=== PATIENT | female | born 1975 | race Hispanic/Latino ===

== ENCOUNTER 2018-01-22 09:35 | Inpatient (IN) | payer OTHER ==
[2018-01-22] MEDS ORDERED: METHYLPREDNISOLONE 125 MG INJ ONE (10:05)
[2018-01-22] MEDS ORDERED: Magnesium Sulfate 2gm IVPB 0 G/0 ML BAG IV ONE (10:06)
[2018-01-22] MEDS ORDERED: IPRATROPIUM BROM 0.5MG/2.5ML ONE (10:06)
[2018-01-22] MEDS ORDERED: ALBUTEROL 2.5 MG/3 ML NEB SOL ONE (10:06)
[2018-01-22 11:08] LABS: Urine Blood 2+ (NEG); Urine Glucose 3+ (NEG); Urine Protein 1+ (NEG)
[2018-01-22] MEDS ORDERED: DEXAMETHASONE 10 MG/ML VIAL ONE (11:23)
--- NOTE | 2018-01-22 12:29 | RAD REPORT ---
EXAM DESCRIPTION: RAD - Chest Pa And Lat (2 Views) - 01/22/2018 12:13 pm CLINICAL HISTORY: Cough, chest congestion COMPARISON: None. FINDINGS: Significant motion artifact is present. Moderate bilateral pulmonary opacities are noted, greater on the right, likely representing pneumonia or pulmonary edema. The heart is upper limit of n ormal in size. No displaced fractures.
--- NOTE | 2018-01-22 14:37 | EKG ---
Test Date: 2018-01-22 Test Time: 13:56:59 Gas Examiner: RAE MEASUREMENT RESULTS: Intervals: Rate: 91 NM: 150 QRSD: 106 QT: 390 QTc: 479 [place]: P: 9 NM: 150 QRS: 110 T: 14 INTERPRETIVE STATEMENTS: Normal sinus rhythm Right axis deviation Incomplete right bundle branch block Cannot rule out Anterior infarct, age undetermined Abnormal ECG No previous ECG available for comparison Electronically Signed On 01-22-18 14:36:55 CDT by Rios Rangel
[2018-01-22 15:04] LABS: Arterial Blood Carboxyhemoglob 2.1 % (0-1.5); Blood Gas Oxyhemoglobin 82.6 % (94-97); Blood O2 Saturation 85.2 % (92-98.5)
[2018-01-22 15:29] LABS: Absolute Lymphocytes (CBC) 0.6 K/uL (0.7-4.9); Absolute Monocytes 0.2 K/uL (0.1-1.3); Absolute Neutrophil 18.9 K/uL (1.8-8.0); Basophils % 0.3 % (0-1.3); Eosinophils % 0.2 % (0-4.4); Hematocrit 36.8 % (36.0-45.0); Lymphocytes % 2.9 % (15.3-44.8); MCH 22.2 pg (27.0-35.0); MCV 73.5 fL (80-100); MPV 9.4 fL (7.6-11.3); RBC Red Blood Cell Count 5.01 M/uL (3.86-4.86)
[2018-01-22 15:31] LABS: Bicarbonate 25 mEq/L (21-31); Glucose Level 335 mg/dL (65-120); Potassium 4.6 mEq/L (3.6-5.0); Sodium Level 134 mEq/L (135-145)
[2018-01-22 15:38] LABS: ALT/SGPT 22 IU/L (10-60); AST/SGOT 17 IU/L (10-42); Albumin 4.4 g/dL (3.2-5.5); Alkaline Phosphatase 114 IU/L (42-121); BUN Blood Urea Nitrogen 8 mg/dL (6-20); Bilirubin Direct 0.2 mg/dL (0-0.2); Bilirubin Total 0.9 mg/dL (0.3-1.2); Protein, Total 9.2 g/dL (6.0-8.3)
[2018-01-22 16:25] LABS: Protime INR 1.14
--- NOTE | 2018-01-22 16:34 | EDPHYS ---
Physician Documentation [facility] Name: Marianna Garsia Age: 42 yrs Sex: Female : 1975 Arrival Date: 01/22/2018 Time: 09:43 Bed 7 Private MD: Lawrence Daley, Oscar ED Physician Aman Mendes HPI: 01/22 14:00 This 42 yrs old Female presents to ER via Wheelchair with complaints of pm1 Breathing Difficulty, Congestion, Wheezing. 14:00 The patient has shortness of breath at rest, with light activity. Onset: The pm1 symptoms/episode began/occurred 2 day(s) ago. Duration: The symptoms are continuous, and are steadily getting worse. The patient's shortness of breath is aggravated by nothing, is alleviated by nothing. Associated signs and symptoms: Pertinent positives: productive cough, Pertinent negatives: chest pain, fever, nausea, vomiting. Severity of symptoms: in the emergency department the symptoms are worse Pain is currently a 0 / 10. The patient has experienced similar episodes in the past, multiple times, but today's symptoms are worse. The patient has not recently seen a physician, the patient's primary care provider is Dr. Daley. Patient reports no improvement in breathing treatment at home. 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 - Social history:: Smoking status: Patient/guardian denies using tobacco. - Ebola Screening: : No symptoms or risks identified at this time. ROS: 14:00 Constitutional: Negative for fever, chills, and weight loss, Eyes: Negative for injury, pm1 pain, redness, and discharge, ENT: Negative for injury, pain, and discharge, Neck: Negative for injury, pain, and swelling, Cardiovascular: Negative for chest pain, palpitations, and edema. 14:00 Abdomen/GI: Negative for abdominal pain, nausea, vomiting, diarrhea, and constipation, Back: Negative for injury and pain, : Negative for injury, bleeding, discharge, and swelling, MS/Extremity: Negative for injury and deformity, Skin: Negative for injury, rash, and discoloration, Neuro: Negative for headache, weakness, numbness, tingling, and seizure. 14:00 Respiratory: Positive for cough, shortness of breath, wheezing. Exam: 14:00 Constitutional: This is a well developed, well nourished patient who is awake, alert, pm1 and in no acute distress. Head/Face: Normocephalic, atraumatic. Eyes: Pupils equal round and reactive to light, extra-ocular motions intact. Lids and lashes normal. Conjunctiva and sclera are non-icteric and not injected. Cornea within normal limits. Periorbital areas with no swelling, redness, or edema. ENT: Nares patent. No nasal discharge, no septal abnormalities noted. Tympanic membranes are normal and external auditory canals are clear. Oropharynx with no redness, swelling, or masses, exudates, or evidence of obstruction, uvula midline. Mucous membranes moist. Neck: Trachea midline, no thyromegaly or masses palpated, and no cervical lymphadenopathy. Supple, full range of motion without nuchal rigidity, or vertebral point tenderness. No Meningismus. Chest/axilla: Normal chest wall appearance and motion. Nontender with no deformity. No lesions are appreciated. Cardiovascular: Regular rate and rhythm with a normal S1 and S2. No gallops, murmurs, or rubs. Normal PMI, no JVD. No pulse deficits. 14:00 Abdomen/GI: Soft, non-tender, with normal bowel sounds. No distension or tympany. No guarding or rebound. No evidence of tenderness throughout. Back: No spinal tenderness. No costovertebral tenderness. Full range of motion. Skin: Warm, dry with normal turgor. Normal color with no rashes, no lesions, and no evidence of cellulitis. MS/ Extremity: Pulses equal, no cyanosis. Neurovascular intact. Full, normal range of motion. 14:00 Respiratory: the patient does not display signs of respiratory distress, Respirations: normal, Breath sounds: rhonchi, are heard diffusely. 14:00 Neuro: Orientation: is normal, Motor: is normal, moves all fours, strength is normal, strength is 5/5 in all extremities. Vital Signs: 09:51 BP 198 / 86; Pulse 94; Resp 22; Temp 98; Pulse Ox 84% on R/A; Weight 190.51 kg; Height sv 5 ft. 0 in. (152.40 cm); Pain 0/10; 11:34 BP 168 / 88; Pulse 78; Resp 15; Pulse Ox 99% on R/A; Pain 0/10; ch 11:55 Pulse 89; Resp 22; Pulse Ox 98% on Nebulizer Mask; ch 13:11 BP 162 / 102; Pulse 86; Resp 24; Temp 99; Pulse Ox 88% on R/A; Pain 2/10; ch 13:55 BP 148 / 98; Pulse 62; Resp 18; Pulse Ox 92% on 2 lpm NC; Pain 0/10; ch 14:51 BP 176 / 82; Pulse 65; Resp 20; Temp 99; Pulse Ox 96% on 2 lpm NC; Pain 3/10; ch 17:00 BP 156 / 85; Pulse 84; Resp 24; Temp 99; Pulse Ox 93% on 2 lpm NC; Pain 0/10; ch 18:16 BP 168 / 102; Pulse 85; Resp 24; Temp 99(O); Pulse Ox 98% on Nebulizer Mask; Pain 0/10; ch 19:54 BP 158 / 76; Pulse 81; Resp 18; Temp 98; Pulse Ox 97% on NC; bp 09:51 Body Mass Index 82.03 (190.51 kg, 152.40 cm) sv 09:51 Pt placed on O2 \T\ 2L per NC sv 13:11 pt placed back on NC ch MDM: 10:10 Patient medically screened. pm1 13:45 ED course: Patient with decreased saturation to mid 80s without NC. Additional tests pm1 order to evaluate if patient requires admission. 16:33 Data reviewed: vital signs. Data interpreted: Pulse oximetry: on room air is 96 %. pm1 Interpretation: normal. Counseling: I had a detailed discussion with the patient and/or guardian regarding: the historical points, exam findings, and any diagnostic results supporting the discharge/admit diagnosis, lab results, radiology results, the need for further work-up and treatment in the hospital. 16:56 Physician consultation: Lawrence Daley MD was called at 16:56, was contacted at 16:56, pm1 regarding admission, patient's condition, and will see patient steroids, antibiotics, breathing treatment, insulin sliding scale, oxygen nc protocol. 01/22 10:45 Order name: Urine Dipstick--Ancillary (enter results); Complete Time: 11:14 em1 01/22 10:45 Order name: Urine --Ancillary (enter results); Complete Time: 11:14 em01/22 13:40 Order name: PT-INR; Complete Time: 16:50 pm1 01/22 13:40 Order name: Basic Metabolic Panel; Complete Time: 16:15 pm01/22 13:40 Order name: CBC with Diff pm01/22 13:40 Order name: LFT's; Complete Time: 16:15 pm1 01/22 10:55 Order name: Chest Pa And Lat (2 Views) XRAY; Complete Time: 12:44 pm1 01/22 13:40 Order name: Magnesium; Complete Time: 16:15 pm01/22 13:40 Order name: Ptt, Activated; Complete Time: 16:50 pm1 01/22 13:40 Order name: Troponin (emerg Dept Use Only); Complete Time: 16:15 pm1 01/22 13:40 Order name: Blood Culture Adult (2) pm1 01/22 14:07 Order name: ABG; Complete Time: 16:15 pm1 01/22 10:45 Order name: Urine Dipstick-Ancillary (obtain specimen); Complete Time: 10:45 em1 01/22 10:45 Order name: Urine Test (obtain specimen); Complete Time: 10:45 em1 01/22 13:40 Order name: EKG; Complete Time: 13:41 pm1 01/22 13:40 Order name: IV Saline Lock; Complete Time: 18:15 pm01/22 13:40 Order name: Labs collected and sent; Complete Time: 15:49 pm1 01/22 13:40 Order name: O2 Per Protocol; Complete Time: 15:22 pm1 01/22 13:40 Order name: O2 Sat Monitoring; Complete Time: 15:22 pm1 06/12 18:18 Order name: FSBS; Complete Time: 19:09 Administered Medications: 10:05 Drug: Albuterol - atroVENT (3:1) (2.5 mg - 0.5 mg) 3 ml Route: Nebulizer; 11:19 Follow up: Response: No adverse reaction; No change in condition 10:56 CANCELLED (Change to decadron): SOLU-Medrol 125 mg IM once pm1 11:33 Drug: Decadron 10 mg Route: IM; Site: affected area; 11:33 Follow up: Response: No adverse reaction; Marked relief of symptoms 17:30 Drug: Xopenex 1.25 mg Route: Inhalation; 17:30 Drug: AZITHromycin 500 mg Route: IVPB; Infused Over: 1 hrs; Site: left antecubital; 19:01 Follow up: IV Status: Completed infusion; IV Intake: 250ml 18:14 Drug: NS 0.9% 1000 ml Route: IV; Rate: 1000 ml; Site: left antecubital; 19:01 Follow up: IV Status: Completed infusion; IV Intake: 1000ml ch 18:15 Not Given (Given IV): Rocephin (cefTRIAXone) 1 grams IM once ch 18:16 Drug: Rocephin 1 grams Route: IV; Rate: calculated rate; Site: left antecubital; 19:00 Follow up: IV Status: Completed infusion; IV Intake: 100ml 18:18 Drug: Insulin Regular Human 10 units {Co-Signature: ph (Aria Conner RN).} Route: Sub-Q; Site: left upper arm; 19:01 Follow up: Response: No adverse reaction Point of Care Testing: Blood Glucose: 18:16 Blood Glucose: 324 mg/dL; ch 18:54 Blood Glucose: 234 mg/dL; ch Ranges: Critical Glucose Levels:Adult <50 mg/dl or >400 mg/dl <40 mg/dl or >180 mg/dl Disposition: 01/23 15:27 Co-signature as Attending Physician, Aman Mendes MD I agree with the assessment and [place] plan of care. Disposition: 01/22/18 16:34 Hospitalization ordered by Lawrence Daley for Inpatient Admission. Preliminary diagnosis is Pneumonia, unspecified organism. - Bed requested for Telemetry/MedSurg (Inpatient). - Status is Inpatient Admission. bp - Condition is Stable. - Problem is new. - Symptoms have improved. UTI on Admission? No Signatures: Dispatcher [employer] EDMelissa Decker, RN RN Livia Barraza, Sanjuana Denny RN, CHAN RN Aman Krueger MD MD cha Martinez, Eric em1 Nishant Gaspar, DRIVEMATIC MACHINE OPERATOR DRIVEMATIC MACHINE OPERATOR pm1 Carlton Mckeon, CHAN RN bp Aria Conner RN ph Corrections: (The following items were deleted from the chart) 01/22 10:56 10:55 SOLU-Medrol 125 mg IM once ordered. pm1 pm1 18:18 16:34 Hospitalization Ordered by Lawrence Daley MD for Inpatient Admission. Preliminary diagnosis is Pneumonia, unspecified organism. Bed requested for Telemetry/MedSurg (Inpatient). Status is Inpatient Admission. Condition is Stable. Problem is new. Symptoms have improved. UTI on Admission? No. pm1 20:02 18:18 01/22/2018 16:34 Hospitalization Ordered by Lawrence Daley MD for Inpatient bp Admission. Preliminary diagnosis is Pneumonia, unspecified organism. Bed requested for Telemetry/MedSurg (Inpatient). Status is Inpatient Admission. Condition is Stable. Problem is new. Symptoms have improved. UTI on Admission? No. dw
--- NOTE | 2018-01-22 16:34 | ER ---
Nurse's Notes [facility] Name: Marianna Garsia Age: 42 yrs Sex: Female : 1975 Arrival Date: 01/22/2018 Time: 09:43 Bed 7 Private MD: Lawrence Daley F Diagnosis: Pneumonia, unspecified organism Presentation: 01/22 09:48 Presenting complaint: Patient states: nasal drainage, chest congestion, SOB x 2 days. sv Pt reports recently having a miscarriage. Transition of care: patient was not received from another setting of care. Onset of symptoms was January 20, 2018. Risk Assessment: Do you want to hurt yourself or someone else? Patient reports no desire to harm self or others. Care prior to arrival: None. 09:48 Method Of Arrival: Wheelchair sv 09:48 Acuity: JJ 3 sv 18:51 Initial Sepsis Screen: Does the patient meet any 2 criteria? No. Patient's initial ch sepsis screen is negative. Does the patient have a suspected source of infection? No. Patient's initial sepsis screen is negative. Triage Assessment: 18:52 Respiratory: Reports shortness of breath at rest Onset: The symptoms/episode ch began/occurred gradually, the patient has moderate shortness of breath. 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 - Social history:: Smoking status: Patient/guardian denies using tobacco. - Ebola Screening: : No symptoms or risks identified at this time. Screenin:11 Abuse screen: Denies threats or abuse. Denies injuries from another. Nutritional ch screening: No deficits noted. Tuberculosis screening: No symptoms or risk factors identified. Fall Risk None identified. Assessment: 10:11 General: Appears in no apparent distress. comfortable, Behavior is calm, cooperative, ch appropriate for age. Pain: Denies pain. Cardiovascular: Denies chest pain, Capillary refill < 3 seconds in bilateral fingers toes Clubbing of nail beds is absent Pulses are all present. Edema is 1+ to left midcalf, left ankle, left foot, right midcalf, right ankle and right foot Rhythm is regular. Respiratory: Airway is patent Trachea midline Respiratory effort is even, unlabored, Breath sounds are diminished bilaterally. LUNGS SOUND MUFFLED, PT IS MORBIDLY OBESE. GI: Abdomen is non-distended, obese. Derm: Skin is intact, Skin is pink, warm \T\ dry. Musculoskeletal: Circulation, motion, and sensation intact. Capillary refill < 3 seconds, in bilateral fingers. toes. Range of motion: intact in all extremities. 10:44 Reassessment: Patient appears in no apparent distress at this time. Spo2 noted to 77% ph RA after pt returned from restroom, placed on 4L NC, improved to 95%. 11:55 Reassessment: Patient appears in no apparent distress at this time. Patient and/or ch family updated on plan of care and expected duration. Pain level reassessed. Patient is alert, oriented x 3, equal unlabored respirations, skin warm/dry/pink. PT FINISHING NEB TREATMENT FROM BEFORE THAT WAS REMOVED WHEN PT WENT TO THE RESTROOM. 13:11 Reassessment: Patient appears in no apparent distress at this time. pt placed on room ch air, o2 drops to 88%. pt returned to NC at 2L. 13:55 Reassessment: Patient appears in no apparent distress at this time. Patient and/or ch family updated on plan of care and expected duration. Pain level reassessed. PT O2 79% ON ROOM AIR AFTER GOING TO THE RESTROOM. PT PLACED ON NC AT 2L NISHANT NOTIFIED. 14:51 Reassessment: Patient appears in no apparent distress at this time. Patient and/or ch family updated on plan of care and expected duration. Pain level reassessed. Patient is alert, oriented x 3, equal unlabored respirations, skin warm/dry/pink. lab at bedside drawing now. 15:46 Reassessment: Patient appears in no apparent distress at this time. pt requests to speak to nishant before we poke her again to attempt and IV. 17:00 Reassessment: Patient appears in no apparent distress at this time. Taya unable to ch find venous access to attempt and IV. Dr. Suarez notified, Dr. Suarez to perform US IV. 19:00 Reassessment: RECD REPORT FROM SHIRA GILES. 42YO HF P/W SOB x2 DAYS, RECENT SPONTANEOUS bp MISCARRIAGE. ALL CURRENT ORDERS COMPLETED, PT TBA FOR PNA. Vital Signs: 09:51 BP 198 / 86; Pulse 94; Resp 22; Temp 98; Pulse Ox 84% on R/A; Weight 190.51 kg; Height sv 5 ft. 0 in. (152.40 cm); Pain 0/10; 11:34 BP 168 / 88; Pulse 78; Resp 15; Pulse Ox 99% on R/A; Pain 0/10; ch 11:55 Pulse 89; Resp 22; Pulse Ox 98% on Nebulizer Mask; ch 13:11 BP 162 / 102; Pulse 86; Resp 24; Temp 99; Pulse Ox 88% on R/A; Pain 2/10; ch 13:55 BP 148 / 98; Pulse 62; Resp 18; Pulse Ox 92% on 2 lpm NC; Pain 0/10; ch 14:51 BP 176 / 82; Pulse 65; Resp 20; Temp 99; Pulse Ox 96% on 2 lpm NC; Pain 3/10; ch 17:00 BP 156 / 85; Pulse 84; Resp 24; Temp 99; Pulse Ox 93% on 2 lpm NC; Pain 0/10; ch 18:16 BP 168 / 102; Pulse 85; Resp 24; Temp 99(O); Pulse Ox 98% on Nebulizer Mask; Pain 0/10; ch 19:54 BP 158 / 76; Pulse 81; Resp 18; Temp 98; Pulse Ox 97% on NC; bp 09:51 Body Mass Index 82.03 (190.51 kg, 152.40 cm) sv 09:51 Pt placed on O2 \T\ 2L per NC sv 13:11 pt placed back on NC ch ED Course: 09:43 Patient arrived in ED. jb7 09:44 Lawrence Daley MD is Private Physician. jb7 09:49 Triage completed. sv 09:52 Arm band placed on right wrist. sv 10:02 Melissa Smith, CHAN is Primary Nurse. ch 10:04 Nishant Gaspar NP is PHCP. pm1 10:04 Aman Mendes MD is Attending Physician. pm1 10:11 Patient has correct armband on for positive identification. Placed in gown. Bed in low ch position. Call light in reach. Side rails up X2. Adult w/ patient. 10:11 No provider procedures requiring assistance completed. ch 11:51 Patient moved to radiology via wheelchair. jb2 12:10 X-ray completed. Patient tolerated procedure poorly. PT UNABLE TO HOLD STILL AND HOLD jb2 BREATH FOR LONG EXPOSURE TIMES REQUIRED FOR BODY HABITUS. 12:11 Chest Pa And Lat (2 Views) XRAY In Process Unspecified. EDMS 14:15 Missed attempt(s): 20 gauge in right forearm. attempted by Linden. Bleeding controlled, ch band aid applied, catheter tip intact. 14:31 EKG done, by forestry technician. reviewed by Nishant Gaspar NP. at1 14:35 Missed attempt(s): 20 gauge in left antecubital area. 22 gauge in left forearm. missed ch by PJ. Bleeding controlled, band aid applied, catheter tip intact. 15:48 No apparent distress. Resting quietly. ch 15:48 Missed attempt(s): 22 gauge in left wrist. antecubital area. Bleeding controlled, band ch aid applied, catheter tip intact. 16:33 Lawrence Daley MD is Hospitalizing Provider. pm1 17:10 Missed attempt(s): 20 gauge in right antecubital area. Bleeding controlled, band aid sv applied, catheter tip intact. 17:22 Accessed peripheral vein via ultrasound, utilizing dynamic ultrasound technique using sv 20G Nexia IV catheter ,sterile technique, per hospital protocol. Clean \T\ dry. Dressing intact. Good blood return. Flushes easily. done by Dr Suarez. 18:51 Patient admitted, IV remains in place. ch 19:14 Report given to Sandy Vincent. ch 19:17 Carlton Mckeon, RN is Primary Nurse. bp Administered Medications: 10:05 Drug: Albuterol - atroVENT (3:1) (2.5 mg - 0.5 mg) 3 ml Route: Nebulizer; ch 11:19 Follow up: Response: No adverse reaction; No change in condition ch 10:56 CANCELLED (Change to decadron): SOLU-Medrol 125 mg IM once pm1 11:33 Drug: Decadron 10 mg Route: IM; Site: affected area; 11:33 Follow up: Response: No adverse reaction; Marked relief of symptoms ch 17:30 Drug: Xopenex 1.25 mg Route: Inhalation; ch 17:30 Drug: AZITHromycin 500 mg Route: IVPB; Infused Over: 1 hrs; Site: left antecubital; ch 19:01 Follow up: IV Status: Completed infusion; IV Intake: 250ml ch 18:14 Drug: NS 0.9% 1000 ml Route: IV; Rate: 1000 ml; Site: left antecubital; ch 19:01 Follow up: IV Status: Completed infusion; IV Intake: 1000ml ch 18:15 Not Given (Given IV): Rocephin (cefTRIAXone) 1 grams IM once ch 18:16 Drug: Rocephin 1 grams Route: IV; Rate: calculated rate; Site: left antecubital; ch 19:00 Follow up: IV Status: Completed infusion; IV Intake: 100ml ch 18:18 Drug: Insulin Regular Human 10 units {Co-Signature: ph (Shira Conner RN).} Route: Sub-Q; Site: left upper arm; 19:01 Follow up: Response: No adverse reaction ch Point of Care Testing: Blood Glucose: 18:16 Blood Glucose: 324 mg/dL; ch 18:54 Blood Glucose: 234 mg/dL; ch Ranges: Intake: 19:00 IV: 100ml; Total: 100ml. ch 19:01 IV: 1000ml; Total: 1100ml. ch 19:01 IV: 250ml; Total: 1350ml. Outcome: 16:34 Decision to Hospitalize by Provider. pm1 19:57 Admitted to Med/surg accompanied by tech, family with patient, via wheelchair, room bp 219, with chart, Report called to KETURAH GILES 19:57 Condition: stable 19:57 Instructed on the need for admit. 20:02 Patient left the ED. bp Signatures: Dispatcher [employer] EDMS Melissa Smith RN RN ch Verde, Stephanie, RN RN Chvaez Gautam jb2 Katerin bradley, licensed practical vocational nurse EKG Tat1 Shira Conner RN RN ph Marinas, Patrick, BENCH MOLDER BENCH MOLDER pm1 Liborio Rodas jb7 Carlton Mckeon RN RN bp Patricia Conner RN ph Corrections: (The following items were deleted from the chart) 09:52 09:51 BP 198 / 86; Pulse 94bpm; Resp 22bpm; Pulse Ox 84% RA; Temp 98F; 190.51 kg; sv Height 5 ft. 0 in.; BMI: 82.0; Pain 0/10; sv 15:48 15:47 Missed attempt(s): 20 gauge in right forearm. attempted by Linden. Bleeding ch controlled, band aid applied, catheter tip intact. ch
[2018-01-22] MEDS ORDERED: LEVALBUTEROL 1.25 MG/3 ML NEB ONE (17:26)
[2018-01-22] MEDS ORDERED: CEFTRIAXONE/SWI 1gm 1 GM/10 ML SYR ONE (17:26)
[2018-01-22] MEDS ORDERED: AZITHROMYCIN IV 500 MG in NA CHLORIDE 0.9% 250 ML IVPB ONE (18:00)
[2018-01-22] MEDS ORDERED: NA CHLORIDE 0.9% 1,000 ML ONE (18:28)
[2018-01-22] MEDS ORDERED: INSULIN -REGULAR HUMAN 50 UNIT/0.5 ML ML ONE (18:29)
[2018-01-22] MEDS ORDERED: IPRATROPIUM BROM 0.5MG/2.5ML NEB PRN (19:47)
[2018-01-22] MEDS ORDERED: GLUCAGON 1 MG/VIAL IM PRN (19:47)
[2018-01-22] MEDS ORDERED: ALBUTEROL 2.5 MG/3 ML NEB SOL NEB PRN (19:47)
[2018-01-22] MEDS ORDERED: D50W 25 GM/50 ML SYRINGE IV PRN (19:47)
[2018-01-22] MEDS: METHYLPREDNISOLONE 40 MG INJ IV SCH (20:25)
[2018-01-22] MEDS: INSULIN -REGULAR HUMAN 50 UNIT/0.5 ML ML SQ SCH (20:36)
[2018-01-22] MEDS: ACETAMINOPHEN 500 MG TAB PO PRN (21:49)
[2018-01-22 22:25] LABS: Anisocytosis 1+; Blood Morphology Comment NOTED (NOT SEEN); Platelet Estimate INCR; Poikilocytosis 1+; Polychromasia 1+
[2018-01-22 22:26] LABS: Stomatocytes 1+
[2018-01-22 22:30] VITALS: BMI 81.1
[2018-01-23] MEDS: METHYLPREDNISOLONE 40 MG INJ IV SCH ×5 (00:29→23:14)
[2018-01-23] MEDS ORDERED: CEFTRIAXONE 1 GM/NS 50 ML 1 GM/50 ML BAG IV SCH (05:00)
[2018-01-23] MEDS ORDERED: CEFTRIAXONE 1000 MG/VIAL ONE (05:33)
[2018-01-23 05:42] LABS: Absolute Lymphocytes (CBC) 0.9 K/uL (0.7-4.9); Absolute Monocytes 0.2 K/uL (0.1-1.3); Absolute Neutrophil 16.4 K/uL (1.8-8.0); Basophils % 0.6 % (0-1.3); Eosinophils % 0.1 % (0-4.4); Hematocrit 32.6 % (36.0-45.0); Lymphocytes % 5.3 % (15.3-44.8); MCH 22.4 pg (27.0-35.0); MCV 74.1 fL (80-100); MPV 9.7 fL (7.6-11.3); Monocytes % 0.9 % (3.3-12.3)
[2018-01-23] MEDS ORDERED: NA CHLORIDE 0.9% 50 ML ONE (05:43)
[2018-01-23 05:48] LABS: BUN Blood Urea Nitrogen 14 mg/dL (6-20); Bicarbonate 22 mEq/L (21-31); Glucose Level 363 mg/dL (65-120); Potassium 5.2 mEq/L (3.6-5.0); Sodium Level 133 mEq/L (135-145)
[2018-01-23] MEDS: INSULIN -REGULAR HUMAN 50 UNIT/0.5 ML ML SQ SCH ×4 (08:36→21:05)
[2018-01-23] MEDS: AZITHROMYCIN IV 250 MG in NA CHLORIDE 0.9% 250 ML IVPB SCH (10:06)
[2018-01-23] MEDS: ACETAMINOPHEN 500 MG TAB PO PRN (12:18)
[2018-01-23] MEDS: CEFTRIAXONE/SWI 1gm 1 GM/10 ML SYR IV SCH (16:38)
[2018-01-23] MEDS ORDERED: ENOXAPARIN 40 MG/0.4 ML SQ SCH (17:00)
[2018-01-23] MEDS: LABETALOL HCL 100 MG TAB PO SCH (21:03)
[2018-01-23] MEDS: NPH (HUMAN) 100 UNITS/ML INSULIN SQ SCH (21:04)
--- NOTE | 2018-01-24 00:04 | HP ---
Date of Admission: 01/22/2018 History Of Present Illness: A 42-year-old female, morbidly obese, has been having increased shortnes s of breath and coughing over the past 2-3 days before presenting to the emergency room. She was whe ezing. In the emergency room, she was found to have bibasilar pneumonia and so we went ahead and adm itted her for that, also because she was hypoxic. Her pulse oximetry on room air was dropped down to 83 as per the ER physician. Review of Systems: Respiratory: As above. Cardiovascular: No complaints. Genitourinary: No complaints. Skeletomuscular: No complaints. Gastrointestinal: No complaint. Neurological: No complaint. Past Medical History: 1.Hypothyroidism. 2.Type 2 diabetes mellitus. 3.Hypertension. 4.Gastroesophageal reflux disease. Social History: No smoking, alcohol, or drug abuse history. Family History: Noncontributory. Medications: Include albuterol 2 puffs q.4 hours, Novolin R 20 units subcutaneous b.i.d., metformin 1000 mg p.o. b.i.d., QVAR inhaler 2 puffs daily, NPH insulin 70 units b.i.d. subcutaneous, labetalol 200 mg p.o. b.i.d., lansoprazole 30 mg p.o. daily, and levothyroxine 100 mcg daily. Allergies: HYDROCODONE AND AVOCADO. Physical Examination: General: The patient is now sitting in no acute distress. Vital Signs: Blood pressure 180/85, pulse 73, and temperature 96.7. Heart: Regular rate and rhythm. Chest: Bilateral bibasilar crackles. Mild end-expiratory wheezing. Abdomen: Soft, nontender. No hepatosplenomegaly. Bowel sounds normoactive. Extremities: No edema. No cyanosis. Peripheral pulses are felt. Neurological: Alert, oriented, nonfocal. Grossly intact. Diagnostic Data: Chest x-ray showed bilateral pulmonary opacities, greater on the right, representin g pneumonia. EKG: Normal sinus rhythm, right axis deviation, and incomplete right bundle-branch blo ck. CBC: White cell count 19.7, blood count 17.7, hemoglobin 11.1, hematocrit 36.8, and platelets 4 66. ABGs: A pH 7.46, pCO2 35.7, PO2 52.4, bicarb 24.8 on room air, and percent saturation 82.6. So dium 133, potassium 5.2, chloride 100, and blood sugar fingersticks noted in the 300s. Assessment And Plan: Bilateral pneumonia. The patient is being admitted with hypoxia. The patient is being admitted. Put her on oxygen protocol. Her O2 saturation went up to more than 88% on 2 L ox ygen nasal prong. The patient has been put on ceftriaxone IV antibiotic and azithromycin IV antibiot ic. We will continue home medications. We will hold on the metformin. We will continue her on her insulin and put her also on regular insulin sliding scale. Put her on beta 2 agonist breathing treat ments, and the patient also was put on Solu-Medrol 40 mg IV q.6 hours. We will also put the patient on Lovenox prophylaxis. Look orders for details. MFS/MODL Voice ID: [id number]
[2018-01-24] MEDS: CEFTRIAXONE/SWI 1gm 1 GM/10 ML SYR IV SCH (04:37)
[2018-01-24] MEDS: METHYLPREDNISOLONE 40 MG INJ IV SCH ×2 (05:42→11:31)
[2018-01-24] MEDS ORDERED: LEVOTHYROXINE SOD 0.1 MG TAB PO SCH (06:00)
[2018-01-24 06:29] LABS: Absolute Lymphocytes (CBC) 0.7 K/uL (0.7-4.9); Absolute Monocytes 0.4 K/uL (0.1-1.3); Absolute Neutrophil 16.1 K/uL (1.8-8.0); Basophils % 0.2 % (0-1.3); Hematocrit 30.9 % (36.0-45.0); Lymphocytes % 4.3 % (15.3-44.8); MCH 22.7 pg (27.0-35.0); MCV 73.4 fL (80-100); MPV 9.6 fL (7.6-11.3); Monocytes % 2.3 % (3.3-12.3)
[2018-01-24] MEDS ORDERED: PANTOPRAZOLE 40MG TABLET PO SCH (06:30)
[2018-01-24 06:51] LABS: Potassium 5.1 mEq/L (3.6-5.0)
[2018-01-24 08:14] VITALS: O2SAT 97
[2018-01-24] MEDS: INSULIN -REGULAR HUMAN 50 UNIT/0.5 ML ML SQ SCH ×2 (08:45→11:31)
[2018-01-24] MEDS: NPH (HUMAN) 100 UNITS/ML INSULIN SQ SCH (08:46)
[2018-01-24] MEDS: AZITHROMYCIN IV 250 MG in NA CHLORIDE 0.9% 250 ML IVPB SCH (08:47)
[2018-01-24] MEDS: LABETALOL HCL 100 MG TAB PO SCH (08:47)
[2018-01-24] MEDS: ACETAMINOPHEN 500 MG TAB PO PRN (08:52)
[2018-01-24] MEDS ORDERED: BECLOMETHASONE DIPROPIONATE IH SCH (09:00)
[2018-01-24 13:19] VITALS: BP 170/74; TEMP 96.7
--- NOTE | 2018-01-25 05:30 | DS ---
Date of Discharge: 01/24/2018 History Of Present Illness: A 42-year-old female who was admitted to the hospital because of bibasil ar pneumonia and hypoxia from that. Past Medical History: As per the admit note. Social History: As per the admit note. Family History: As per the admit note. Medications: As per the admit note. Allergies: PER THE ADMIT NOTE. Physical Examination: As per the admit note. Diagnostic Data: As per the admit note. Hospital Course: The patient was admitted to the hospital. She was put on IV Rocephin and Zithromax for her pneumonia. She also was put on IV Solu-Medrol and beta 2 agonist breathing treatments for h er wheezing because she has also history of asthma. The patient with this treatment recovered fast w ith her pulse oximetry more than 90% on room air. She remained afebrile. She was doing well. Her b lood sugar fingersticks were in the 300s and 400s. We put the patient back on her home medication an d on regular insulin sliding scale. However, with IV steroids, it was expected to be high, so we gaurang l go ahead and stop that. The patient today is feeling very well, ambulating well without shortness of breath or any symptoms. White cell count is 17.3, slight drop from yesterday of 17.7, however, al so on steroids. Demargination could increase her white cell count along with her pneumonia. Hemoglo bin 9.5, hematocrit 30.9, platelets 407. Sodium 132, potassium 5.1. BUN 24, creatinine 0.78. The patient today indeed wants to go home. She said she is feeling well. She will take her home med ications and her antibiotics knowing that if her blood sugar stays high. However, I have recommended to keep her one more day but she refused. So, we will go ahead and discharge the patient on Z-Julian 2 50 mg. The patient has albuterol inhaler at home. Advised to take 2 puffs q.i.d. Her lungs today w ere clear to auscultation, however, and the patient to continue her regular insulin for her diabetes and to follow 1800-calorie diabetic diet. We will see the patient on Sunday for followup. She is go ing to bring all her medications with her. Look discharge orders for details. MFS/MODL Voice ID: [id number] Report ID: [id number]
== END 2018-01-24 15:00 | disposition home or self-care (01) | DRG 194 ==
LOC: ER 09:35 → ERHOLD 16:34 → 2ND 19:20
PROVIDERS: ADMIT Internal Medicine; ATTEND Internal Medicine
DX: J18.9 Pneumonia, unspecified organism (principal); Z68.45 Body mass index [BMI] 70 or greater, adult; R09.02 Hypoxemia; E11.9 Type 2 diabetes mellitus without complications; I10 Essential (primary) hypertension; E03.9 Hypothyroidism, unspecified; K21.9 Gastro-esophageal reflux disease without esophagitis; E66.01 Morbid (severe) obesity due to excess calories
CPT/HCPCS: 36415; 71046; 80048; 80076; 81003; 81025; 82805; 82962; 83735; 84484; 85025; 85610; 85730; 87040; 93005; 94640; 94760; 96365; 96372; 99285; J0456; J0696; J1100; J1650; J2920; J2930; J3475; J7030

== ENCOUNTER 2018-05-09 08:40 | Emergency (ER) | payer OTHER ==
[2018-05-09] MEDS ORDERED: METHYLPREDNISOLONE 125 MG INJ ONE (09:23)
[2018-05-09] MEDS ORDERED: LEVALBUTEROL 1.25 MG/3 ML NEB ONE ×2 (09:23→10:31)
--- NOTE | 2018-05-09 09:44 | RAD REPORT ---
EXAM DESCRIPTION: Blake Single View05/09/2018 9:30 am CLINICAL HISTORY: Cough COMPARISON: January 2018 FINDINGS: The lungs appear grossly clear. The heart is normal size IMPRESSION: No acute abnormalities displayed
[2018-05-09 09:47] LABS: Absolute Lymphocytes (CBC) 0.8 K/uL (0.7-4.9); Absolute Monocytes 0.6 K/uL (0.1-1.3); Absolute Neutrophil 13.2 K/uL (1.8-8.0); Basophils % 0.3 % (0-1.3); Eosinophils % 1.1 % (0-4.4); Hematocrit 31.5 % (36.0-45.0); Lymphocytes % 5.6 % (15.3-44.8); MCH 22.5 pg (27.0-35.0); MCV 72.3 fL (80-100); MPV 9.8 fL (7.6-11.3); Monocytes % 4.4 % (3.3-12.3); RBC Red Blood Cell Count 4.36 M/uL (3.86-4.86)
[2018-05-09 09:54] LABS: BUN Blood Urea Nitrogen 6 mg/dL (7-18); Bicarbonate 29 mmol/L (21-32); Glucose Level 146 mg/dL (74-106); Potassium 4.2 mmol/L (3.5-5.1); Sodium Level 138 mmol/L (136-145)
[2018-05-09 10:59] LABS: Blood Morphology Comment NOT SEEN (NOT SEEN); Platelet Estimate ADEQ
--- NOTE | 2018-05-09 11:08 | EDPHYS ---
Physician Documentation [facility] Name: Marianna Garsia Age: 42 yrs Sex: Female : 1975 Arrival Date: 05/09/2018 Time: 08:43 Bed 7 Private MD: None, None ED Physician Chintan Suarez HPI: 05/09 09:31 This 42 yrs old Female presents to ER via Wheelchair with complaints of Fever, rn Breathing Difficulty. 09:31 The patient reports fever, not measured (subjective). Onset: The symptoms/episode rn began/occurred yesterday. Modifying factors: there are no obvious modifying factors. Severity of symptoms: At their worst the symptoms were mild in the emergency department the symptoms are unchanged. The patient has experienced a previous episode. Reports subjective fever, non-productive cough, + mild sob that improves with her breathing treatments, + hx of asthma, on home O2 at home. Began yesterday and multiple exposures to "upper respiratory infections" with kids. . Historical: - Allergies: 09:02 AVOCADO (LAURUS PERSEA); sv 09:02 HYDROCODONE; sv - PMHx: 09:02 Diabetes - IDDM; Hypertension; Hypothyroidism; sv - PSHx: 09:02 ; sv - Immunization history:: Adult Immunizations not up to date. - Social history:: Smoking status: Patient/guardian denies using tobacco. - Family history:: not pertinent. - Ebola Screening: : No symptoms or risks identified at this time. - Hospitalizations: : No recent hospitalization is reported. ROS: 09:31 Constitutional: Negative for chills, and weight loss, Eyes: Negative for injury, pain, rn redness, and discharge, Cardiovascular: Negative for chest pain, palpitations, and edema, Respiratory: Negative for pleuritic chest pain Abdomen/GI: Negative for abdominal pain, nausea, vomiting, diarrhea, and constipation, MS/Extremity: Negative for injury and deformity, Skin: Negative for injury, rash, and discoloration, Neuro: Negative for headache, weakness, numbness, tingling, and seizure. Exam: :31 Constitutional: Obese female, no acute distress Head/Face: Normocephalic, atraumatic. rn Eyes: Pupils equal round and reactive to light, extra-ocular motions intact. Lids and lashes normal. Conjunctiva and sclera are non-icteric and not injected. Cornea within normal limits. Periorbital areas with no swelling, redness, or edema. ENT: No oral lesions, no exudate, no stridor Neck: Trachea midline, no thyromegaly or masses palpated, and no cervical lymphadenopathy. Supple, full range of motion without nuchal rigidity, or vertebral point tenderness. No Meningismus. Cardiovascular: Regular rate and rhythm with a normal S1 and S2. No gallops, murmurs, or rubs. Normal PMI, no JVD. No pulse deficits. Respiratory: Lungs have equal breath sounds bilaterally, clear to auscultation and percussion. No rales, rhonchi or wheezes noted. No increased work of breathing, no retractions or nasal flaring. Abdomen/GI: Soft, non-tender, with normal bowel sounds. No distension or tympany. No guarding or rebound. No evidence of tenderness throughout. MS/ Extremity: Pulses equal, no cyanosis. Neurovascular intact. Full, normal range of motion. Equal circumference. Neuro: Awake and alert, GCS 15, oriented to person, place, time, and situation. Cranial nerves II-XII grossly intact. Motor strength 5/5 in all extremities. Sensory grossly intact. Cerebellar exam normal. Normal gait. Vital Signs: 09:02 Temp 98.5(O); sv 09:11 BP 180 / 86; Pulse 99; Resp 18; Pulse Ox 91% on R/A; Weight 189.6 kg; Height 5 ft. 0 ss in. (152.40 cm); Pain 3/10; 09:15 Pulse Ox 89% on R/A; sv 09:48 BP 164 / 71; Pulse 91; Resp 18; Pulse Ox 93% on 2 lpm NC; sv 10:32 BP 162 / 70; Pulse 81; Resp 18; Pulse Ox 98% on Nebulizer Mask; sv 09:11 Body Mass Index 81.63 (189.60 kg, 152.40 cm) ss 09:15 Pt placed on O2 \\T\\ 2L per NC. sv MDM: 08:48 Patient medically screened. rn 11:06 Differential diagnosis: viral Infection, bacterial infection, URI, pneumonia. Data rn reviewed: vital signs, nurses notes, lab test result(s), radiologic studies, plain films, and as a result, I will discharge patient. Counseling: I had a detailed discussion with the patient and/or guardian regarding: the historical points, exam findings, and any diagnostic results supporting the discharge/admit diagnosis, lab results, radiology results, the need for outpatient follow up, to return to the emergency department if symptoms worsen or persist or if there are any questions or concerns that arise at home. Special discussion: I discussed with the patient/guardian in detail that at this point there is no indication for admission to the hospital. It is understood, however, that if the symptoms persist or worsen the patient needs to return immediately for re-evaluation. ED course: Pt improved, no wheezing, oxygen near her baseline and has home O2, has nebulizer machine at home, cxr neg, procal negative, will dc home with steroids and abx. . 05/09 09:02 Order name: CBC with Diff 05/09 09:02 Order name: Basic Metabolic Panel; Complete Time: 10:20 05/09 09:02 Order name: Blood Culture Adult (2) 05/09 09:02 Order name: Procalcitonin; Complete Time: 10:20 05/09 09:02 Order name: Flu; Complete Time: 10:20 05/09 09:02 Order name: Strep; Complete Time: 10:20 05/09 09:02 Order name: XRAY Chest (1 view); Complete Time: 09:47 05/09 09:21 Order name: Glucose, Ancillary Testing; Complete Time: 09:47 [facility] 05/09 09:58 Order name: Throat Culture [facility] 05/09 11:00 Order name: Manual Differential [facility] 05/09 09:02 Order name: IV Start; Complete Time: 09:25 rn Administered Medications: 09:30 Drug: SOLU-Medrol 125 mg Route: IVP; Site: right wrist; sg 10:27 Follow up: Response: No adverse reaction sv 09:30 Drug: Xopenex 1.25 mg Route: Inhalation; sg 10:27 Drug: Xopenex 1.25 mg Route: Inhalation; sv 10:27 Drug: Xopenex 1.25 mg Route: Inhalation; sv Point of Care Testing: Blood Glucose: 09:20 Blood Glucose: 159 mg/dL; sv Ranges: Critical Glucose Levels:Adult <50 mg/dl or >400 mg/dl <40 mg/dl or >180 mg/dl Disposition: 05/09/18 11:08 Discharged to Home. Impression: Bronchitis, not specified as acute or chronic, Asthma. - Condition is Stable. - Discharge Instructions: Acute Bronchitis, Adult, Asthma, Adult. - Prescriptions for Prednisone 20 mg Oral Tablet - take 3 tablet by ORAL route once daily for 5 days; 15 tablet. Albuterol Sulfate 2.5 mg /3 mL (0.083 %) Inhalation Solution for Nebulization - inhale 1 unit by NEBULIZATION route every 8 hours As needed; 1 box. Zithromax Z- Julian 250 mg Oral Tablet - take 1 tablet by ORAL route as directed for 5 days Day 1 - take two (2) tablets one time. Day 2, 3, 4 , 5 take one (1) tablet once daily.; 6 tablet. - Work release form, Medication Reconciliation Form, Thank You Letter, Antibiotic Education, Prescription Opioid Use form. - Follow up: Private Physician; When: As needed; Reason: Recheck today's complaints, Re-evaluation by your physician. - Problem is new. - Symptoms have improved. Signatures: Dispatcher [employer] Livia Maria RN RN sv Gay, Steven, RN RN sg Chintan Suarez MD MD patent attorney: (The following items were deleted from the chart) 11:40 11:08 05/09/2018 11:08 Discharged to Home. Impression: Bronchitis, not specified as sg acute or chronic; Asthma. Condition is Stable. Forms are Medication Reconciliation Form, Thank You Letter, Antibiotic Education, Prescription Opioid Use. Follow up: Private Physician; When: As needed; Reason: Recheck today's complaints, Re-evaluation by your physician. Problem is new. Symptoms have improved. rn
--- NOTE | 2018-05-09 11:08 | ER ---
Nurse's Notes [facility] Name: Marianna Garsia Age: 42 yrs Sex: Female : 1975 Arrival Date: 05/09/2018 Time: 08:43 Bed 7 Private MD: None, None Diagnosis: Bronchitis, not specified as acute or chronic;Asthma Presentation: 05/09 09:01 Transition of care: patient was not received from another setting of care. Onset of sv symptoms. Risk Assessment: Do you want to hurt yourself or someone else? Patient reports no desire to harm self or others. Care prior to arrival: None. 09:01 Method Of Arrival: Wheelchair sv 09: Acuity: JJ 3 sv 09: Presenting complaint: Patient states: c/o SOB for a few days and has had to take her sv breathing treatments at home. Subjective fever. Initial Sepsis Screen: Does the patient meet any 2 criteria? No. Patient's initial sepsis screen is negative. Does the patient have a suspected source of infection? No. Patient's initial sepsis screen is negative. Triage Assessment: 09:01 General: Appears in no apparent distress. uncomfortable, obese, well developed, sv Behavior is calm, cooperative, appropriate for age. Pain: Complains of pain in chest Pain currently is 3 out of 10 on a pain scale. Pain began 2-3 days ago. Is intermittent, Aggravated by cough. EENT: Reports nasal congestion nasal discharge. Neuro: Level of Consciousness is awake, alert, obeys commands, Oriented to person, place, time, situation, Moves all extremities. Full function Gait is steady. Respiratory: Reports shortness of breath on exertion cough that is non-productive, Respiratory effort is even, unlabored, Respiratory pattern is regular, symmetrical, the patient has mild shortness of breath. Respiratory: Breath sounds are clear bilaterally. Derm: Skin is normal. Historical: - Allergies: :02 AVOCADO (LAURUS PERSEA); sv 09:02 HYDROCODONE; sv - PMHx: 09:02 Diabetes - IDDM; Hypertension; Hypothyroidism; sv - PSHx: 09:02 ; sv - Immunization history:: Adult Immunizations not up to date. - Social history:: Smoking status: Patient/guardian denies using tobacco. - Family history:: not pertinent. - Ebola Screening: : No symptoms or risks identified at this time. - Hospitalizations: : No recent hospitalization is reported. Screenin:10 Abuse screen: Denies threats or abuse. Denies injuries from another. Nutritional sv screening: No deficits noted. Tuberculosis screening: No symptoms or risk factors identified. Fall Risk None identified. Assessment: 09:10 General: Appears in no apparent distress. uncomfortable, obese, Behavior is calm, sv cooperative, appropriate for age. General: Reports fever for 2-3 days. Pain: Complains of pain in chest Pain currently is 3 out of 10 on a pain scale. Pain began 2-3 days ago. Is intermittent. Neuro: Level of Consciousness is awake, alert, obeys commands, Oriented to person, place, time, situation, Moves all extremities. Full function Gait is steady, Speech is normal. Cardiovascular: Patient's skin is warm and dry. Respiratory: Reports shortness of breath cough that is non-productive, pain with cough Airway is patent Respiratory effort is even, unlabored, Respiratory pattern is regular, symmetrical, Breath sounds are clear bilaterally. Derm: Skin is normal. 10:32 Reassessment: Patient appears in no apparent distress at this time. No changes from sv previously documented assessment. Patient and/or family updated on plan of care and expected duration. Pain level reassessed. Patient is alert, oriented x 3, equal unlabored respirations, skin warm/dry/pink. 11:40 Reassessment: Patient appears in no apparent distress at this time. Patient and/or sv family updated on plan of care and expected duration. Pain level reassessed. Patient is alert, oriented x 3, equal unlabored respirations, skin warm/dry/pink. Patient states symptoms have improved. Vital Signs: 09:02 Temp 98.5(O); sv 09:11 BP 180 / 86; Pulse 99; Resp 18; Pulse Ox 91% on R/A; Weight 189.6 kg; Height 5 ft. 0 ss in. (152.40 cm); Pain 3/10; 09:15 Pulse Ox 89% on R/A; sv 09:48 BP 164 / 71; Pulse 91; Resp 18; Pulse Ox 93% on 2 lpm NC; sv 10:32 BP 162 / 70; Pulse 81; Resp 18; Pulse Ox 98% on Nebulizer Mask; sv 09:11 Body Mass Index 81.63 (189.60 kg, 152.40 cm) ss 09:15 Pt placed on O2 \T\ 2L per NC. sv ED Course: 08:43 Patient arrived in ED. sb2 08:43 None, None is Private Physician. sb2 08:48 Chintan Suarez MD is Attending Physician. rn 09:01 Livia Monae RN is Primary Nurse. sv 09:01 Arm band placed on left wrist. sv 09:02 Triage completed. sv 09:10 Initial lab(s) drawn, by me, sent to lab. First set of blood cultures drawn by me. sv Inserted saline lock: 20 gauge in right forearm, using aseptic technique. Blood collected. Flushed right forearm with 5 ml normal saline. 09:10 Patient has correct armband on for positive identification. Placed in gown. Bed in low sv position. Adult w/ patient. Pulse ox on. NIBP on. Door closed. Warm blanket given. Head of bed elevated. 09:25 Second set of blood cultures drawn by me. sv 09:28 XRAY Chest (1 view) In Process Unspecified. EDMS 10:44 Throat Culture Sent. sv 11:40 No provider procedures requiring assistance completed. IV discontinued, intact, sv bleeding controlled, No redness/swelling at site. Pressure dressing applied. Administered Medications: 09:30 Drug: SOLU-Medrol 125 mg Route: IVP; Site: right wrist; sg 10:27 Follow up: Response: No adverse reaction sv 09:30 Drug: Xopenex 1.25 mg Route: Inhalation; sg 10:27 Drug: Xopenex 1.25 mg Route: Inhalation; sv 10:27 Drug: Xopenex 1.25 mg Route: Inhalation; sv Point of Care Testing: Blood Glucose: 09:20 Blood Glucose: 159 mg/dL; sv Ranges: Outcome: 11:08 Discharge ordered by . rn 11:40 Patient left the ED. sg 11:40 Discharged to home via wheelchair, with family. sv 11:40 Condition: stable 11:40 Discharge instructions given to patient, family, Instructed on discharge instructions, follow up and referral plans. medication usage, Demonstrated understanding of instructions, follow-up care, medications, Prescriptions given X 3. Signatures: Dispatcher [employer] EDMS Livia Monae RN RN sv Gay, Steven, RN RN Chintan Suarez MD MD rn Smirch, Shelby, RN RN Kayy Diane sb2
[2018-05-09 11:45] VITALS: TEMP 98.5
[2018-05-09 11:50] VITALS: BP 162/70; O2SAT 98
== END 2018-05-09 11:40 | disposition home or self-care (01) ==
LOC: ER 08:40
DX: J45.909 Unspecified asthma, uncomplicated (principal); I10 Essential (primary) hypertension; Z88.5 Allergy status to narcotic agent; Z91.018 Allergy to other foods
CPT/HCPCS: 36415; 71045; 80048; 82962; 84145; 85025; 87040; 87070; 87081; 87804; 96374; 99284; J2930

== ENCOUNTER 2018-09-28 20:19 | Emergency (ER) | payer OTHER, SELFPAY ==
--- NOTE | 2018-09-28 22:01 | EDPHYS ---
Physician Documentation [facility] Name: Marianna Garsia Age: 43 yrs Sex: Female : 1975 Arrival Date: 09/28/2018 Time: 20:22 Bed 19 Private MD: ED Physician Jesus Philip HPI: 09/28 21:00 This 43 yrs old Female presents to ER via Ambulatory with complaints of jr8 Congestion, Breathing Difficulty. 21:00 The patient has shortness of breath at rest. Onset: The symptoms/episode began/occurred jr8 gradually, 3 day(s) ago. Duration: The symptoms are continuous. The patient's shortness of breath has no apparent modifying factors. Associated signs and symptoms: Pertinent positives: non-productive cough, fever. Severity of symptoms: At their worst the symptoms were mild in the emergency department the symptoms are unchanged. The patient has not experienced similar symptoms in the past. The patient has not recently seen a physician. 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 It has been more than one year since last vaccine. - Social history:: Smoking status: Patient/guardian denies using tobacco. - Ebola Screening: : Patient negative for fever greater than or equal to 101.5 degrees Fahrenheit, and additional compatible Ebola Virus Disease symptoms Patient denies exposure to infectious person Patient denies travel to an Ebola-affected area in the 21 days before illness onset. ROS: 21:00 Eyes: Negative for injury, pain, redness, and discharge, ENT: Negative for injury, jr8 pain, and discharge, Neck: Negative for injury, pain, and swelling, Cardiovascular: Negative for chest pain, palpitations, and edema, Abdomen/GI: Negative for abdominal pain, nausea, vomiting, diarrhea, and constipation, Back: Negative for injury and pain, MS/Extremity: Negative for injury and deformity, Skin: Negative for injury, rash, and discoloration, Neuro: Negative for headache, weakness, numbness, tingling, and seizure. 21:00 Respiratory: Positive for cough, shortness of breath, wheezing. Exam: 21:00 Eyes: Pupils equal round and reactive to light, extra-ocular motions intact. Lids and jr8 lashes normal. Conjunctiva and sclera are non-icteric and not injected. Cornea within normal limits. Periorbital areas with no swelling, redness, or edema. ENT: Nares patent. No nasal discharge, no septal abnormalities noted. Tympanic membranes are normal and external auditory canals are clear. Oropharynx with no redness, swelling, or masses, exudates, or evidence of obstruction, uvula midline. Mucous membranes moist. Neck: Trachea midline, no thyromegaly or masses palpated, and no cervical lymphadenopathy. Supple, full range of motion without nuchal rigidity, or vertebral point tenderness. No Meningismus. Cardiovascular: Regular rate and rhythm with a normal S1 and S2. No gallops, murmurs, or rubs. Normal PMI, no JVD. No pulse deficits. Respiratory: Lungs have equal breath sounds bilaterally, clear to auscultation and percussion. No rales, rhonchi or wheezes noted. No increased work of breathing, no retractions or nasal flaring. Abdomen/GI: Soft, non-tender, with normal bowel sounds. No distension or tympany. No guarding or rebound. No evidence of tenderness throughout. Back: No spinal tenderness. No costovertebral tenderness. Full range of motion. Skin: Warm, dry with normal turgor. Normal color with no rashes, no lesions, and no evidence of cellulitis. MS/ Extremity: Pulses equal, no cyanosis. Neurovascular intact. Full, normal range of motion. Neuro: Awake and alert, GCS 15, oriented to person, place, time, and situation. Cranial nerves II-XII grossly intact. Motor strength 5/5 in all extremities. Sensory grossly intact. Cerebellar exam normal. Normal gait. Vital Signs: 20:33 BP 138 / 77; Pulse 89; Resp 20; Temp 98(O); Pulse Ox 99% on R/A; Weight 199.13 kg; ed1 Height 5 ft. 0 in. (152.40 cm); Pain 2/10; 21:15 BP 137 / 82; Pulse 87; Resp 19 S; Pulse Ox 99% on R/A; jd3 20:33 Body Mass Index 85.74 (199.13 kg, 152.40 cm) ed1 MDM: 20:38 Patient medically screened. jr8 22:00 Data reviewed: vital signs, nurses notes, lab test result(s), radiologic studies, plain jr8 films, and as a result, I will discharge patient. Data interpreted: Pulse oximetry: on room air is 99 %. Interpretation: normal. Counseling: I had a detailed discussion with the patient and/or guardian regarding: the historical points, exam findings, and any diagnostic results supporting the discharge/admit diagnosis, lab results, radiology results, the need for outpatient follow up, a family practitioner, to return to the emergency department if symptoms worsen or persist or if there are any questions or concerns that arise at home. 09/28 21:01 Order name: Influenza Screen (a \T\ B); Complete Time: 21:59 jr8 09/28 21:01 Order name: XRAY Chest Pa And Lat (2 Views) jr8 Administered Medications: No medications were administered Disposition: 23:59 Co-signature as Attending Physician, Jesus Philip MD I agree with the assessment and kdr plan of care. Disposition: 09/28/18 22:00 Discharged to Home. Impression: Acute bronchitis. - Condition is Stable. - Discharge Instructions: Acute Bronchitis, Adult. - Prescriptions for Zithromax Z- Julian 250 mg Oral Tablet - take 1 tablet by ORAL route as directed for 5 days Day 1 - take two (2) tablets one time. Day 2, 3, 4 , 5 take one (1) tablet once daily.; 6 tablet. Albuterol Sulfate 2.5 mg /3 mL (0.083 %) Inhalation Solution for Nebulization - inhale 1 unit by NEBULIZATION route every 8 hours As needed; 1 box. Albuterol Sulfate 90 mcg/actuation - inhale 1-2 puff by INHALATION route every 4-6 hours; 1 Inhaler. - Medication Reconciliation Form, Thank You Letter, Antibiotic Education, Prescription Opioid Use form. - Follow up: Private Physician; When: 2 - 3 days; Reason: Recheck today's complaints, Continuance of care, Re-evaluation by your physician. - Problem is new. - Symptoms have improved. Signatures: Dispatcher [employer] EDMS Jesus Philip MD MD kdr Riggs, Erika RN RN ed1 Laurent Spaulding PA PA jr8 John Canseco RN RN jd3 Corrections: (The following items were deleted from the chart) 22:11 22:00 09/28/2018 22:00 Discharged to Home. Impression: Acute bronchitis. Condition is jd3 Stable. Forms are Medication Reconciliation Form, Thank You Letter, Antibiotic Education, Prescription Opioid Use. Follow up: Private Physician; When: 2 - 3 days; Reason: Recheck today's complaints, Continuance of care, Re-evaluation by your physician. Problem is new. Symptoms have improved. jr8
--- NOTE | 2018-09-28 22:01 | ER ---
Nurse's Notes [facility] Department Name: Marianna Garsia Age: 43 yrs Sex: Female : 1975 Arrival Date: 09/28/2018 Time: 20:22 Bed 19 Private MD: Diagnosis: Acute bronchitis Presentation: 09/28 20:30 Presenting complaint: Patient states: I have been coughing and had mucous for 3-4 days. ed1 I run low on my tempature so even if I have like a 98 its a fever for me. Transition of care: patient was not received from another setting of care. Onset of symptoms was September 27, 2018. Risk Assessment: Do you want to hurt yourself or someone else? Patient reports no desire to harm self or others. Initial Sepsis Screen: Does the patient meet any 2 criteria? No. Patient's initial sepsis screen is negative. Does the patient have a suspected source of infection? No. Patient's initial sepsis screen is negative. Care prior to arrival: None. 20:30 Method Of Arrival: Ambulatory ed1 20:30 Acuity: JJ 4 jd3 Triage Assessment: 20:33 General: Appears uncomfortable, Behavior is calm, cooperative. Pain: Complains of pain ed1 in head Pain currently is 2 out of 10 on a pain scale. Respiratory: Breath sounds are clear bilaterally. 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 It has been more than one year since last vaccine. - Social history:: Smoking status: Patient/guardian denies using tobacco. - Ebola Screening: : Patient negative for fever greater than or equal to 101.5 degrees Fahrenheit, and additional compatible Ebola Virus Disease symptoms Patient denies exposure to infectious person Patient denies travel to an Ebola-affected area in the 21 days before illness onset. Screenin:41 Abuse screen: Denies threats or abuse. Nutritional screening: No deficits noted. jd3 Tuberculosis screening: No symptoms or risk factors identified. Fall Risk Ambulatory Aid- None/Bed Rest/Nurse Assist (0 pts). Gait- Normal/Bed Rest/Wheelchair (0 pts) Mental Status- Oriented to own ability (0 pts). Total Alfaro Fall Scale indicates No Risk (0-24 pts). Assessment: 20:43 General: Appears in no apparent distress. uncomfortable, Behavior is calm, cooperative, jd3 appropriate for age. Pain: Complains of pain in head Quality of pain is described as aching. Neuro: Level of Consciousness is awake, alert, obeys commands, Oriented to person, place, time, situation. Cardiovascular: Heart tones S1 S2 present Capillary refill < 3 seconds Patient's skin is warm and dry. Respiratory: Reports cough that is productive, Airway is patent Respiratory effort is even, unlabored, Respiratory pattern is regular, symmetrical, Breath sounds with wheezes bilaterally. GI: No signs and/or symptoms were reported involving the gastrointestinal system. : No signs and/or symptoms were reported regarding the genitourinary system. EENT: No signs and/or symptoms were reported regarding the EENT system. Derm: Skin is intact, Skin is dry, Skin is normal, Skin temperature is warm. Musculoskeletal: Circulation, motion, and sensation intact. Range of motion: intact in all extremities. 21:39 Reassessment: Patient appears in no apparent distress at this time. No changes from jd3 previously documented assessment. Patient and/or family updated on plan of care and expected duration. Pain level reassessed. Patient is alert, oriented x 3, equal unlabored respirations, skin warm/dry/pink. 22:09 Reassessment: Patient appears in no apparent distress at this time. Patient and/or jd3 family updated on plan of care and expected duration. Pain level reassessed. Patient is alert, oriented x 3, equal unlabored respirations, skin warm/dry/pink. Vital Signs: 20:33 BP 138 / 77; Pulse 89; Resp 20; Temp 98(O); Pulse Ox 99% on R/A; Weight 199.13 kg; ed1 Height 5 ft. 0 in. (152.40 cm); Pain 2/10; 21:15 BP 137 / 82; Pulse 87; Resp 19 S; Pulse Ox 99% on R/A; jd3 20:33 Body Mass Index 85.74 (199.13 kg, 152.40 cm) ed1 ED Course: 20:22 Patient arrived in ED. mr 20:31 Triage completed. ed1 20:33 Arm band placed on left wrist. ed1 20:38 Laurent Spaulding PA is PHCP. jr8 20:38 Jesus Philip MD is Attending Physician. jr8 20:41 John Canseco, CHAN is Primary Nurse. jd3 20:42 Patient has correct armband on for positive identification. Bed in low position. Call jd3 light in reach. Side rails up X 1. Adult w/ patient. 21:27 XRAY Chest Pa And Lat (2 Views) In Process Unspecified. EDMS 22:10 No provider procedures requiring assistance completed. Patient did not have IV access jd3 during this emergency room visit. Administered Medications: No medications were administered Outcome: 22:00 Discharge ordered by . jr8 22:10 Discharged to home ambulatory, with family. jd3 22:10 Condition: stable 22:10 Discharge instructions given to patient, family, Instructed on discharge instructions, follow up and referral plans. medication usage, Demonstrated understanding of instructions, follow-up care, medications, Prescriptions given X 3. 22:11 Patient left the ED. jd3 Signatures: Dispatcher [employer] [facility] RojasLupis Erika, RN RN ed1 Laurent Spaulding PA PA jr8 John Canseco, RN RN jd3 Corrections: (The following items were deleted from the chart) 20:32 20:30 Presenting complaint: Patient states: I have been coughing and had mucous for 3-4 ed1 days. ed1 22:09 20:30 Acuity: JJ 3 ed1 jd3 22:11 22:09 BP 137 / 82; Pulse 87bpm; Resp 19bpm; Spontaneous; Pulse Ox 99% RA; jd3 jd3
[2018-09-28 22:40] VITALS: TEMP 98; O2SAT 99
[2018-09-28 22:41] VITALS: BP 137/82
--- NOTE | 2018-09-29 09:08 | RAD REPORT ---
EXAM DESCRIPTION: Blake Mcbride (2 Views)09/28/2018 9:26 pm CLINICAL HISTORY: Cough COMPARISON: April 2018 FINDINGS: The lungs appear clear of acute infiltrate. The heart is mildly enlarged IMPRESSION: No acute abnormalities displayed
== END 2018-09-28 22:11 | disposition home or self-care (01) ==
LOC: ER 20:19
DX: J20.9 Acute bronchitis, unspecified (principal); E11.9 Type 2 diabetes mellitus without complications; I10 Essential (primary) hypertension; E03.9 Hypothyroidism, unspecified; J45.909 Unspecified asthma, uncomplicated; Z79.4 Long term (current) use of insulin; Z88.5 Allergy status to narcotic agent; Z91.018 Allergy to other foods
CPT/HCPCS: 71046; 87804; 99283

== ENCOUNTER 2019-02-26 22:12 | Emergency (ER) | payer SELFPAY ==
--- NOTE | 2019-02-26 23:57 | ER ---
Nurse's Notes [facility] Name: Marianna Garsia Age: 43 yrs Sex: Female : 1975 Arrival Date: 02/26/2019 Time: 22:13 Bed 20 Private MD: Diagnosis: Asthma;Bronchitis, not specified as acute or chronic;Essential (primary) hypertension Presentation: 02/26 22:20 Presenting complaint: Patient states: cough, congestion, runny nose \T\ sore throat x 6 aa1 days. Also reports she has been out of her BP medication x 1 month. Transition of care: patient was not received from another setting of care. Onset of symptoms was February 20, 2019. Risk Assessment: Do you want to hurt yourself or someone else? Patient reports no desire to harm self or others. Initial Sepsis Screen: Does the patient meet any 2 criteria? No. Patient's initial sepsis screen is negative. Does the patient have a suspected source of infection? No. Patient's initial sepsis screen is negative. Care prior to arrival: None. 22:20 Method Of Arrival: Wheelchair aa1 22:20 Acuity: JJ 3 aa1 Triage Assessment: 22:22 General: Appears in no apparent distress. comfortable, Behavior is calm, cooperative, aa1 appropriate for age. Pain: Denies pain. 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 - Social history:: Smoking status: Patient/guardian denies using tobacco. - Ebola Screening: : Patient denies exposure to infectious person Patient denies travel to an Ebola-affected area in the 21 days before illness onset. Screenin:10 Abuse screen: Denies threats or abuse. Nutritional screening: No deficits noted. tl2 Tuberculosis screening: No symptoms or risk factors identified. Fall Risk None identified. Assessment: 23:10 General: Appears in no apparent distress. uncomfortable, Behavior is calm, cooperative, tl2 appropriate for age. Pain: Denies pain. Neuro: Level of Consciousness is awake, alert, obeys commands, Oriented to person, place, time, situation. Cardiovascular: Denies chest pain. Respiratory: Reports cough that is non-productive, Airway is patent Respiratory effort is even, unlabored, Respiratory pattern is regular, symmetrical, Breath sounds are coarse bilaterally. GI: No signs and/or symptoms were reported involving the gastrointestinal system. : No signs and/or symptoms were reported regarding the genitourinary system. EENT: Reports pain in throat. Derm: Skin is pink, warm \T\ dry. 02/27 00:37 Reassessment: Patient appears in no apparent distress at this time. Patient and/or tl2 family updated on plan of care and expected duration. Pain level reassessed. Patient is alert, oriented x 3, equal unlabored respirations, skin warm/dry/pink. pt verbalized understanding of discharge instructions, need for follow up and prescription usage. Vital Signs: 02/26 22:22 BP 219 / 78; Pulse 86; Resp 20; Temp 97.9; Pulse Ox 96% on R/A; Weight 204.12 kg (R); aa1 Height 5 ft. 0 in. (152.40 cm); Pain 0/10; 23:09 BP 159 / 97; Pulse 84; Resp 20; Pulse Ox 97% on R/A; tl2 02/27 00:37 BP 182 / 75; Pulse 74; Resp 18; Pulse Ox 96% on R/A; tl2 02/26 22:22 Body Mass Index 87.88 (204.12 kg, 152.40 cm) aa1 ED Course: 02/26 22:13 Patient arrived in ED. ag3 22:21 Triage completed. aa1 22:22 Arm band placed on right wrist. aa1 22:25 Shy Hernández FNP-C is [facility]. snw 22:25 Justin Blanco MD is Attending Physician. snw 22:42 Lilian Murray, CHAN is Primary Nurse. tl2 23:10 Patient has correct armband on for positive identification. Bed in low position. Call tl2 light in reach. Side rails up X 1. Adult w/ patient. 02/27 00:37 No provider procedures requiring assistance completed. Patient did not have IV access tl2 during this emergency room visit. Administered Medications: 00:16 Drug: Zithromax 500 mg Route: PO; tl2 00:39 Follow up: Response: No adverse reaction; Medication administered at discharge. tl2 Outcome: 02/26 23:57 Discharge ordered by MD. anderson 02/27 00:37 Discharged to home via wheelchair, with family. tl2 Condition: stable Discharge instructions given to patient, family, Instructed on discharge instructions, follow up and referral plans. medication usage, Demonstrated understanding of instructions, follow-up care, medications, Prescriptions given X 3. 00:39 Patient left the ED. tl2 Signatures: Sandy Perrin RN RN aa1 Shy Hernández, BAT LATHE OPERATOR-C BAT LATHE OPERATOR-Csnw Lilian Murray RN RN tl2 Ivette Tate ag3
--- NOTE | 2019-02-26 23:57 | EDPHYS ---
Physician Documentation [facility] Name: Marianna Garsia Age: 43 yrs Sex: Female : 1975 Arrival Date: 02/26/2019 Time: 22:13 Bed 20 Private MD: ED Physician Justin Blanco HPI: 02/26 23:54 This 43 yrs old Female presents to ER via Wheelchair with complaints of High snw Blood Pressure, Cold Symptoms. 23:54 The patient or guardian reports cough, hyperventilation, shortness of breath. Onset: snw The symptoms/episode began/occurred suddenly, 3 day(s) ago, and became persistent. Modifying factors: The symptoms are alleviated by nothing. the symptoms are aggravated by activity. Associated signs and symptoms: The patient has no apparent associated signs or symptoms. Severity of symptoms: At their worst the symptoms were moderate in the emergency department the symptoms are unchanged. The patient has experienced similar episodes in the past. It is unknown whether or not the patient has recently seen a physician. Pt with hx of asthma. 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 - Social history:: Smoking status: Patient/guardian denies using tobacco. - Ebola Screening: : Patient denies exposure to infectious person Patient denies travel to an Ebola-affected area in the 21 days before illness onset. ROS: 23:50 Eyes: Negative for injury, pain, redness, and discharge, Neck: Negative for injury, snw pain, and swelling, Cardiovascular: Negative for chest pain, palpitations, and edema. 23:50 Abdomen/GI: Negative for abdominal pain, nausea, vomiting, diarrhea, and constipation, Back: Negative for injury and pain, : Negative for injury, bleeding, discharge, and swelling, MS/Extremity: Negative for injury and deformity, Skin: Negative for injury, rash, and discoloration, Neuro: Negative for headache, weakness, numbness, tingling, and seizure. 23:50 Constitutional: Positive for fatigue, malaise. 23:50 ENT: Positive for ear pain. 23:50 Respiratory: Positive for cough, with no reported sputum, shortness of breath, on exertion. sats drop into the 80s on exertion, pt states she is trying to care for her Mother who gets frequent infections. Pt wants to treat her problem early and decrease risk to her Mom. Exam: 23:50 Constitutional: This is a well developed, well nourished patient who is awake, alert, snw and in no acute distress. 23:50 Eyes: Pupils equal round and reactive to light, extra-ocular motions intact. Lids and lashes normal. Conjunctiva and sclera are non-icteric and not injected. Cornea within normal limits. Periorbital areas with no swelling, redness, or edema. ENT: Nares patent. No nasal discharge, no septal abnormalities noted. Tympanic membranes are normal and external auditory canals are clear. Oropharynx with no redness, swelling, or masses, exudates, or evidence of obstruction, uvula midline. Mucous membranes moist. Neck: Trachea midline, no thyromegaly or masses palpated, and no cervical lymphadenopathy. Supple, full range of motion without nuchal rigidity, or vertebral point tenderness. No Meningismus. Chest/axilla: Normal chest wall appearance and motion. Nontender with no deformity. No lesions are appreciated. Cardiovascular: Regular rate and rhythm with a normal S1 and S2. No gallops, murmurs, or rubs. Normal PMI, no JVD. No pulse deficits. 23:50 Abdomen/GI: Soft, non-tender, with normal bowel sounds. No distension or tympany. No guarding or rebound. No evidence of tenderness throughout. Back: No spinal tenderness. No costovertebral tenderness. Full range of motion. Skin: Warm, dry with normal turgor. Normal color with no rashes, no lesions, and no evidence of cellulitis. MS/ Extremity: Pulses equal, no cyanosis. Neurovascular intact. Full, normal range of motion. Neuro: Awake and alert, GCS 15, oriented to person, place, time, and situation. Cranial nerves II-XII grossly intact. Motor strength 5/5 in all extremities. Sensory grossly intact. Cerebellar exam normal. Normal gait. Psych: Awake, alert, with orientation to person, place and time. Behavior, mood, and affect are within normal limits. 23:50 Head/face: Noted is flushed. 23:50 Respiratory: the patient does not display signs of respiratory distress, Respirations: normal, Breath sounds: bronchial sounds, that are moderate, + upper airway congestion. Vital Signs: 22:22 BP 219 / 78; Pulse 86; Resp 20; Temp 97.9; Pulse Ox 96% on R/A; Weight 204.12 kg (R); aa1 Height 5 ft. 0 in. (152.40 cm); Pain 0/10; 23:09 BP 159 / 97; Pulse 84; Resp 20; Pulse Ox 97% on R/A; tl2 02/27 00:37 BP 182 / 75; Pulse 74; Resp 18; Pulse Ox 96% on R/A; tl2 02/26 22:22 Body Mass Index 87.88 (204.12 kg, 152.40 cm) aa1 MDM: 02/26 23:04 Patient medically screened. snw 23:59 Data reviewed: vital signs, nurses notes. Data interpreted: Pulse oximetry: on room air snw is 97 %. Interpretation: normal. Counseling: I had a detailed discussion with the patient and/or guardian regarding: the historical points, exam findings, and any diagnostic results supporting the discharge/admit diagnosis, the presence of at least one elevated blood pressure reading (>120/80) during this emergency department visit, the need for outpatient follow up, to return to the emergency department if symptoms worsen or persist or if there are any questions or concerns that arise at home. Special discussion: I have referred the patient to see his PCP for further evaluation of high blood pressure. Based on the history and exam findings, there is no indication for further emergent testing or inpatient evaluation. I discussed with the patient/guardian the need to see the primary care provider for further evaluation of the symptoms. I discussed with the patient/guardian the need to see the laborer sawmill for further evaluation of the symptoms. Administered Medications: 02/27 00:16 Drug: Zithromax 500 mg Route: PO; tl2 00:39 Follow up: Response: No adverse reaction; Medication administered at discharge. tl2 Disposition: 00:40 Co-signature as Attending Physician, Justin Blanco MD. mattie Disposition: 02/26/19 23:57 Discharged to Home. Impression: Asthma, Bronchitis, not specified as acute or chronic, Essential (primary) hypertension. - Condition is Stable. - Discharge Instructions: Acute Bronchitis, Adult, Asthma, Adult, Fever, Adult, Hypertension. - Prescriptions for Advair Diskus 100- 50 mcg/dose Inhalation blister with device - inhale 1 puff by INHALATION route 2 times per day approximately 12 hours apart; 1 Cartridge. Zithromax 500 mg Oral Tablet - take 1 tablet by ORAL route once daily for 5 days; 5 tablet. Fluconazole 200 mg Oral Tablet - take 1 tablet by ORAL route as directed Please take one tab post completion of antibiotics, may repeat in one week; 2 tablet. - Medication Reconciliation Form, Thank You Letter, Antibiotic Education, Prescription Opioid Use form. - Follow up: Private Physician; When: 2 - 3 days; Reason: Recheck today's complaints, Continuance of care, Re-evaluation by your physician. Follow up: Emergency Department; When: As needed; Reason: Worsening of condition. Signatures: Sandy Perrin, RN RN aa1 Justin Blanco MD MD pkShy Thomas FNP-C PIN DRAFTER OPERATOR-CsnLilian Oakley RN RN tl2 Corrections: (The following items were deleted from the chart) 02/26 23:57 23:57 02/26/2019 23:57 Discharged to Home. Impression: Asthma; Bronchitis, not snw specified as acute or chronic. Condition is Stable. Forms are Medication Reconciliation Form, Thank You Letter, Antibiotic Education, Prescription Opioid Use. Follow up: Private Physician; When: 2 - 3 days; Reason: Recheck today's complaints, Continuance of care, Re-evaluation by your physician. Follow up: Emergency Department; When: As needed; Reason: Worsening of condition. snw 02/27 00:39 02/26 23:57 02/26/2019 23:57 Discharged to Home. Impression: Asthma; Bronchitis, not tl2 specified as acute or chronic; Essential (primary) hypertension. Condition is Stable. Forms are Medication Reconciliation Form, Thank You Letter, Antibiotic Education, Prescription Opioid Use. Follow up: Private Physician; When: 2 - 3 days; Reason: Recheck today's complaints, Continuance of care, Re-evaluation by your physician. Follow up: Emergency Department; When: As needed; Reason: Worsening of condition. snw
[2019-02-27] MEDS ORDERED: AZITHROMYCIN 250 MG TAB ONE (00:29)
[2019-02-27 02:27] VITALS: TEMP 97.9
[2019-02-27 02:29] VITALS: BP 182/75; O2SAT 96
== END 2019-02-27 00:39 | disposition home or self-care (01) ==
LOC: ER 22:12
DX: J40 Bronchitis, not specified as acute or chronic (principal); J45.909 Unspecified asthma, uncomplicated; I10 Essential (primary) hypertension; E11.9 Type 2 diabetes mellitus without complications; E03.9 Hypothyroidism, unspecified; Z79.4 Long term (current) use of insulin; Z88.5 Allergy status to narcotic agent; Z91.018 Allergy to other foods
CPT/HCPCS: 99283

== ENCOUNTER 2019-08-26 12:12 | Inpatient (IN) | payer SELFPAY ==
[2019-08-26] MEDS ORDERED: ACETAMINOPHEN 500 MG TAB ONE (13:10)
[2019-08-26 13:20] LABS: Absolute Lymphocytes (CBC) 0.7 K/uL (0.7-4.9); Basophils % 0.5 % (0-1.3); Hematocrit 33.6 % (36.0-45.0); Lymphocytes % 4.3 % (15.3-44.8); MPV 9.6 fL (7.6-11.3); RBC Red Blood Cell Count 4.33 M/uL (3.86-4.86)
[2019-08-26 13:38] LABS: ALT/SGPT 21 U/L (12-78); AST/SGOT 12 U/L (15-37); Alkaline Phosphatase 131 U/L (45-117); BUN Blood Urea Nitrogen 5 mg/dL (7-18); Bicarbonate 26 mmol/L (21-32); Bilirubin Direct 0.7 mg/dL (0-0.2); Bilirubin Total 1.3 mg/dL (0.2-1.0); CKMB Creatine Kinase MB < 1.0 ng/mL (0.3-3.6); Creatine Phosphokinase 94 U/L (26-192); Glucose Level 266 mg/dL (74-106); Lipase 32 U/L (73-393); Magnesium 1.8 mg/dL (1.8-2.4); NT PRO-BNP 1129 pg/mL (<125); Potassium 4.2 mmol/L (3.5-5.1); Protein, Total 7.8 g/dL (6.4-8.2); Sodium Level 134 mmol/L (136-145); Troponin (Emerg Dept Use Only) < 0.02 ng/mL (0.0-0.045)
[2019-08-26 13:41] LABS: Protime INR 1.27
[2019-08-26 14:27] LABS: Urine Blood 3+ (NEG); Urine Glucose 2+ (NEG); Urine Protein 3+ (NEG)
--- NOTE | 2019-08-26 14:28 | RAD REPORT ---
EXAM DESCRIPTION: RAD - Chest Pa And Lat (2 Views) - 08/26/2019 1:56 pm CLINICAL HISTORY: SOB COMPARISON: Chest Pa And Lat (2 Views) dated 09/28/2018; Chest For Pe Angio dated 08/26/2019 TECHNIQUE: Frontal and lateral views of the chest were obtained. FINDINGS: The lungs are underinflated. Minimal stranding in the lateral mid to lower left lung field is probably atelectasis. Minimal infiltrate is possible. Shallow inspiration does accentuate interst itial pattern. Substantial change from the comparison is doubtful. Heart size is normal and central vasculature is within normal limits. No pleural effusion or pneu mothorax seen. No acute bony finding noted. No aortic abnormality. IMPRESSION: Minimal infiltrate versus atelectasis in the lower left lung field.
--- NOTE | 2019-08-26 14:34 | RAD REPORT ---
EXAM DESCRIPTION: CT - Chest For Pe Angio - 08/26/2019 2:17 pm CLINICAL HISTORY: elevated ddimer elevated ddimer , decreased O2 saturation COMPARISON: No comparisons TECHNIQUE: Dynamically enhanced 3 mm thick images of the chest were obtained during administration o f approximately 150mL Isovue 370 IV contrast. Coronal and oblique MIP reconstruction images were gene rated and reviewed. Exam utilizes a protocol to evaluate the pulmonary arterial tree. All CT scans are performed using dose optimization technique as appropriate and may include automated exposure control or mA/KV adjustment according to patient size. FINDINGS: Exam has significant limitation due to very large body habitus. No central pulmonary embol i present. Far peripheral branch assessment is more difficult but also felt to be clear of embolic di sease. The aorta as imaged shows no acute or suspicious finding. No pericardial thickening or effusion. No mass or consolidation. Focal scarring or atelectasis change present in the mid to lower left lung field lateral aspect. A 5 millimeter nodule is seen in the lateral gutter on the right. No pleural ef fusion or pleural thickening. No mediastinal or hilar suspicious masses. No chest wall masses or abnormal axillary lymphadenopathy. IMPRESSION: Significantly limited exam showing no evidence for pulmonary embolic disease. Nonacute findings detailed in the body of the report. No worrisome finding seen felt to warrant ongoi surveillance.
[2019-08-26 14:45] LABS: Blood Morphology Comment NOTED (NOT SEEN); Platelet Estimate ADEQ; Poikilocytosis 1+; Urine White Blood Cell Casts OK
[2019-08-26] MEDS ORDERED: NA CHLORIDE 0.9% 250 ML ONE (16:37)
[2019-08-26] MEDS ORDERED: CEFTRIAXONE/SWI 1gm 1 GM/10 ML SYR ONE (16:37)
[2019-08-26] MEDS ORDERED: AZITHROMYCIN 500 MG INJ IVPB ONE (16:37)
[2019-08-26] MEDS ORDERED: ALBUTEROL 2.5 MG/3 ML NEB SOL ONE (16:42)
[2019-08-26] MEDS ORDERED: IPRATROPIUM BROM 0.5MG/2.5ML ONE (16:42)
[2019-08-26] MEDS ORDERED: METHYLPREDNISOLONE 125 MG INJ ONE (16:42)
--- NOTE | 2019-08-26 16:47 | ER ---
Nurse's Notes [facility] Name: Marianna Garsia Age: 43 yrs Sex: Female : 1975 Arrival Date: 08/26/2019 Time: 12:15 Bed 28 Private MD: Lawrence Daley F Diagnosis: Left lower lobe pneumonia;hypoxia Presentation: 08/26 12:36 Presenting complaint: Patient states: SPO2 is at the 80s this morning and when I walk ca1 it goes down to the 70s. Reports fever yesterday at 100.3F and cough that started yesterday as well. Transition of care: patient was not received from another setting of care. Onset of symptoms was August 26, 2019. Risk Assessment: Do you want to hurt yourself or someone else? Patient reports no desire to harm self or others. Initial Sepsis Screen: Does the patient meet any 2 criteria? No. Patient's initial sepsis screen is negative. Does the patient have a suspected source of infection? No. Patient's initial sepsis screen is negative. Care prior to arrival: None. 12:36 Method Of Arrival: Wheelchair ca1 12:36 Acuity: JJ 3 ca1 Triage Assessment: 12:41 General: Appears. 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 - Social history:: Smoking status: Patient/guardian denies using tobacco. - Ebola Screening: : Patient negative for fever greater than or equal to 101.5 degrees Fahrenheit, and additional compatible Ebola Virus Disease symptoms Patient denies exposure to infectious person Patient denies travel to an Ebola-affected area in the 21 days before illness onset No symptoms or risks identified at this time. Screenin:39 Abuse screen: Denies threats or abuse. Denies injuries from another. Nutritional mg2 screening: No deficits noted. Tuberculosis screening: No symptoms or risk factors identified. 12:41 Fall Risk ca1 12:41 Fall Risk Ambulatory Aid- Furniture (30 pts.). mg2 Assessment: 12:41 General: Appears in no apparent distress. comfortable, Behavior is calm, cooperative. mg2 Pain: Denies pain. Neuro: Level of Consciousness is awake, alert, obeys commands, Oriented to person, place, time, situation. Cardiovascular: Capillary refill < 3 seconds Patient's skin is warm and dry. GI: No signs and/or symptoms were reported involving the gastrointestinal system. : No signs and/or symptoms were reported regarding the genitourinary system. Derm: Skin is intact, is healthy with good turgor, Skin is pink, warm \T\ dry. normal. Musculoskeletal: Circulation, motion, and sensation intact. Capillary refill < 3 seconds. 13:36 Reassessment: Patient appears in no apparent distress at this time. Patient and/or ca1 family updated on plan of care and expected duration. Pain level reassessed. Patient is alert, oriented x 3, equal unlabored respirations, skin warm/dry/pink. 15:00 Reassessment: Patient appears in no apparent distress at this time. Patient and/or mg2 family updated on plan of care and expected duration. Pain level reassessed. Patient is alert, oriented x 3, equal unlabored respirations, skin warm/dry/pink. 16:00 Reassessment: Patient appears in no apparent distress at this time. Patient and/or mg2 family updated on plan of care and expected duration. Pain level reassessed. Patient is alert, oriented x 3, equal unlabored respirations, skin warm/dry/pink. 17:00 Reassessment: Patient appears in no apparent distress at this time. mg2 Vital Signs: 12:40 BP 188 / 76; Pulse 98; Resp 20 S; Temp 99.1(O); Pulse Ox 80% on R/A; Weight 198.67 kg ca1 (R); Height 5 ft. (152.40 cm) (R); Pain 7/10; 12:41 Pulse Ox 91% on 2 lpm NC; ca1 13:36 BP 191 / 81; Pulse 91; Resp 19 S; Pulse Ox 96% on R/A; ca1 14:59 BP 188 / 86; Pulse 85; Resp 18; Pulse Ox 97% on 3 lpm NC; mg2 15:52 BP 172 / 66; Pulse 83; Resp 17; Pulse Ox 97% on 3 lpm NC; mg2 16:29 Pulse 90; Resp 21; Pulse Ox 84% on R/A; mg2 17:30 BP 170 / 80; Pulse 81; Resp 20; Temp 98.8; Pulse Ox 97% on 3 lpm NC; mg2 19:17 BP 167 / 70; Pulse 82; Resp 18; Temp 98.8; Pulse Ox 95% 3 lpm ; mg2 12:40 Body Mass Index 85.54 (198.67 kg, 152.40 cm) ca1 16:29 while walking mg2 ED Course: 12:15 Patient arrived in ED. rg4 12:15 Lawrence Daley MD is Private Physician. rg4 12:27 Anibal Gonzales MD is Attending Physician. ps1 12:29 Susana Patton, RN is Primary Nurse. ca1 12:38 Triage completed. ca1 12:38 Ridge Woodard, CHAN is Primary Nurse. mg2 12:39 Patient has correct armband on for positive identification. Door closed. mg2 12:40 Arm band placed on right wrist. ca1 12:56 EKG done, by ed tech. reviewed by Anibal Gonzales MD. at1 12:59 No provider procedures requiring assistance completed. Inserted saline lock: 22 gauge mg2 in left antecubital area, using aseptic technique. Blood collected. 13:54 XRAY Chest Pa And Lat (2 Views) In Process Unspecified. EDMS 14:17 CT Chest For PE Angio In Process Unspecified. EDMS 15:38 Throat Culture Sent. ca1 16:46 Lawrence Daley MD is Hospitalizing Provider. ps1 19:38 Patient admitted, IV remains in place. mg2 Administered Medications: 16:45 Drug: SOLU-Medrol 125 mg Route: IVP; Site: left antecubital; mg2 18:58 Follow up: Response: No adverse reaction mg2 16:46 Drug: Rocephin 1 grams Route: IV; Rate: bolus; Site: left antecubital; mg2 18:59 Follow up: Response: No adverse reaction; IV Status: Completed infusion mg2 16:46 Drug: AZITHromycin 500 mg Route: IVPB; Infused Over: 1 hrs; Site: left antecubital; mg2 18:59 Follow up: Response: No adverse reaction; IV Status: Completed infusion; IV Intake: mg2 250ml 16:46 Drug: Albuterol - atroVENT (3:1) (2.5 mg - 0.5 mg) 3 ml Route: Nebulizer; mg2 18:58 Follow up: Response: No adverse reaction mg2 Intake: 18:59 IV: 250ml; Total: 250ml. mg2 Outcome: 16:46 Decision to Hospitalize by Provider. ps1 19:38 Admitted to Med/surg accompanied by nurse, via wheelchair, room 210, with oxygen, with mg2 chart, Report called to LULY Bhakta 19:38 Condition: stable 19:38 Instructed on the need for admit. 19:56 Patient left the ED. mg2 Signatures: Dispatcher [employer] EDMS Katerin Ott, tire bagger EKG Tat1 Cesilia Mo rg4 Anibal Gonzales MD MD ps1 Ridge Woodard RN RN mg2 Susana Patton RN RN ca1 Corrections: (The following items were deleted from the chart) 19:19 19:17 BP 167 / 70; Pulse 82bpm; Resp 18bpm; Pulse Ox 95% 3 lpm; mg2 mg2
--- NOTE | 2019-08-26 16:48 | EDPHYS ---
Physician Documentation [facility] Name: Marianna Garsia Age: 43 yrs Sex: Female : 1975 Arrival Date: 08/26/2019 Time: 12:15 Bed 28 Private MD: Lawrence Daley F ED Physician Anibal Gonzales HPI: 08/26 12:53 This 43 yrs old Female presents to ER via Wheelchair with complaints of Low ps1 O2, Fever. 12:53 patient has been in contact with family and friends with flu like illness. Patient has ps1 multiple medical comorbidities. Patient states that she has flu like illness (REED, myalgia, cough, ESE, fever, chills) for 3 days. Using supplemental O2 from a machine that she had at home. Self diagnosed with hypoxia on home O2 monitor. Came in for evaluation. . 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 - Social history:: Smoking status: Patient/guardian denies using tobacco. - Ebola Screening: : Patient negative for fever greater than or equal to 101.5 degrees Fahrenheit, and additional compatible Ebola Virus Disease symptoms Patient denies exposure to infectious person Patient denies travel to an Ebola-affected area in the 21 days before illness onset No symptoms or risks identified at this time. ROS: 12:53 Eyes: Negative for injury, pain, redness, and discharge, ENT: Negative for injury, ps1 pain, and discharge, Cardiovascular: Negative for chest pain, palpitations, and edema, Abdomen/GI: Negative for abdominal pain, nausea, vomiting, diarrhea, and constipation, MS/Extremity: Negative for injury and deformity, Skin: Negative for injury, rash, and discoloration, Neuro: Negative for headache, weakness, numbness, tingling, and seizure. 12:53 Constitutional: Positive for body aches, chills, fatigue, fever. 12:53 Respiratory: Positive for cough, dyspnea on exertion, shortness of breath. Exam: 12:53 Constitutional: This is a well developed, well nourished patient who is awake, alert, ps1 and in no acute distress. Head/Face: Normocephalic, atraumatic. Chest/axilla: Normal chest wall appearance and motion. Nontender with no deformity. No lesions are appreciated. Cardiovascular: Regular rate and rhythm. No gallops, murmurs, or rubs. Normal PMI, no JVD. No pulse deficits. Respiratory: Lungs have equal breath sounds bilaterally, clear to auscultation and percussion. No rales, rhonchi or wheezes noted. No increased work of breathing, no retractions or nasal flaring. Abdomen/GI: Soft, non-tender, with normal bowel sounds. No distension or tympany. No guarding or rebound. No evidence of tenderness throughout. MS/ Extremity: Pulses equal, no cyanosis. Neurovascular intact. Full, normal range of motion. Neuro: Awake and alert, GCS 15, oriented to person, place, time, and situation. Cranial nerves II-XII grossly intact. Sensory grossly intact. 12:53 Constitutional: The patient appears obese. Vital Signs: 12:40 BP 188 / 76; Pulse 98; Resp 20 S; Temp 99.1(O); Pulse Ox 80% on R/A; Weight 198.67 kg ca1 (R); Height 5 ft. (152.40 cm) (R); Pain 7/10; 12:41 Pulse Ox 91% on 2 lpm NC; ca1 13:36 BP 191 / 81; Pulse 91; Resp 19 S; Pulse Ox 96% on R/A; ca1 14:59 BP 188 / 86; Pulse 85; Resp 18; Pulse Ox 97% on 3 lpm NC; mg2 15:52 BP 172 / 66; Pulse 83; Resp 17; Pulse Ox 97% on 3 lpm NC; mg2 16:29 Pulse 90; Resp 21; Pulse Ox 84% on R/A; mg2 17:30 BP 170 / 80; Pulse 81; Resp 20; Temp 98.8; Pulse Ox 97% on 3 lpm NC; mg2 19:17 BP 167 / 70; Pulse 82; Resp 18; Temp 98.8; Pulse Ox 95% 3 lpm ; mg2 12:40 Body Mass Index 85.54 (198.67 kg, 152.40 cm) ca1 16:29 while walking mg2 MDM: 12:49 Patient medically screened. ps1 08/26 13:01 Order name: BMP mg2 08/26 13:01 Order name: CBC with Diff mg2 08/26 13:01 Order name: Ckmb mg2 08/26 13:01 Order name: CPK mg2 08/26 13:01 Order name: D-Dimer; Complete Time: 14:08 mg2 08/26 13:01 Order name: Hepatic Function mg2 08/26 13:01 Order name: Lipase; Complete Time: 13:42 mg2 08/26 13:01 Order name: Magnesium; Complete Time: 13:42 mg2 08/26 13:01 Order name: NT PRO-BNP; Complete Time: 13:42 mg2 08/26 13:01 Order name: PT-INR; Complete Time: 14:08 mg2 08/26 13:01 Order name: Ptt, Activated; Complete Time: 14:08 mg2 08/26 13:01 Order name: Troponin (emerg Dept Use Only); Complete Time: 13:42 mg2 08/26 13:01 Order name: Flu; Complete Time: 13:42 mg2 08/26 13:01 Order name: Strep; Complete Time: 13:42 mg2 08/26 13:02 Order name: Basic Metabolic Panel; Complete Time: 13:42 EDMS 08/26 13:02 Order name: CBC with Automated Diff; Complete Time: 15:10 EDMS 08/26 13:02 Order name: CKMB Creatine Kinase MB; Complete Time: 13:42 EDMS 08/26 13:02 Order name: Creatine Phosphokinase; Complete Time: 13:42 EDMS 08/26 13:02 Order name: Liver (Hepatic) Function; Complete Time: 13:42 EDMS 08/26 13:30 Order name: Throat Culture EDMS 08/26 14:08 Order name: Urine Dipstick--Ancillary (enter results); Complete Time: 15:10 bd 08/26 14:08 Order name: Urine --Ancillary (enter results); Complete Time: 15:10 bd 08/26 14:45 Order name: CBC Smear Scan; Complete Time: 15:10 EDMS 08/26 16:52 Order name: Basic Metabolic Panel EDSD 08/26 16:52 Order name: Basic Metabolic Panel EDSD 08/26 16:52 Order name: CBC with Automated Diff EDMS 08/26 16:52 Order name: CBC with Automated Diff EDMS 08/26 16:52 Order name: NT PRO-BNP EDSD 08/26 16:52 Order name: NT PRO-BNP EDSD 08/26 16:52 Order name: Troponin I EDSD 08/26 13:01 Order name: EKG; Complete Time: 13:03 mg2 08/26 13:01 Order name: Cardiac monitoring; Complete Time: 13:02 mg2 08/26 13:01 Order name: EKG - Nurse/Tech; Complete Time: 13:02 mg2 08/26 13:01 Order name: IV Saline Lock; Complete Time: 13:02 mg2 08/26 13:01 Order name: Labs collected and sent; Complete Time: 13:02 mg2 08/26 13:01 Order name: O2 Per Protocol; Complete Time: 13:02 mg2 08/26 13:01 Order name: O2 Sat Monitoring; Complete Time: 13:02 mg2 08/26 13:15 Order name: XRAY Chest Pa And Lat (2 Views); Complete Time: 15:10 [facility] 08/26 13:43 Order name: Urine Dipstick-Ancillary (obtain specimen); Complete Time: 14:07 ps1 08/26 13:51 Order name: CT Chest For PE Angio; Complete Time: 15:10 ps1 08/26 16:52 Order name: Troponin I; Complete Time: 17:55 EDSD 08/26 16:52 Order name: Troponin I [facility] 08/26 17:35 Order name: INCENTIVE SPIROMETRY ps1 Administered Medications: 16:45 Drug: SOLU-Medrol 125 mg Route: IVP; Site: left antecubital; mg2 18:58 Follow up: Response: No adverse reaction mg2 16:46 Drug: Rocephin 1 grams Route: IV; Rate: bolus; Site: left antecubital; mg2 18:59 Follow up: Response: No adverse reaction; IV Status: Completed infusion mg2 16:46 Drug: AZITHromycin 500 mg Route: IVPB; Infused Over: 1 hrs; Site: left antecubital; mg2 18:59 Follow up: Response: No adverse reaction; IV Status: Completed infusion; IV Intake: mg2 250ml 16:46 Drug: Albuterol - atroVENT (3:1) (2.5 mg - 0.5 mg) 3 ml Route: Nebulizer; mg2 18:58 Follow up: Response: No adverse reaction mg2 Disposition: 08/26/19 16:46 Hospitalization ordered by Lawrence Daley for Observation. Preliminary diagnosis are Left lower lobe pneumonia, hypoxia. - Bed requested for Telemetry/MedSurg (observation). - Status is Observation. mg2 - Condition is Fair. - Problem is new. - Symptoms have improved. UTI on Admission? No Signatures: Dispatcher [employer] EDMS Sarah Gabriel Phillip, MD MD ps1 Ridge Woodard RN RN mg2 Susana Patton RN RN ca1 Corrections: (The following items were deleted from the chart) 18:03 16:46 Hospitalization Ordered by Lawrence Daley MD for Observation. Preliminary bd diagnosis is Left lower lobe pneumonia; hypoxia. Bed requested for Telemetry/MedSurg (observation). Status is Observation. Condition is Fair. Problem is new. Symptoms have improved. UTI on Admission? No. ps1 19:56 18:03 08/26/2019 16:46 Hospitalization Ordered by Lawrence Daley MD for Observation. mg2 Preliminary diagnosis is Left lower lobe pneumonia; hypoxia. Bed requested for Telemetry/MedSurg (observation). Status is Observation. Condition is Fair. Problem is new. Symptoms have improved. UTI on Admission? No. bd
[2019-08-26 20:49] VITALS: BMI 85.5
--- NOTE | 2019-08-26 20:54 | EKG ---
Test Date: 2019-08-26 Test Time: 12:54:15 Machine Leather Trimmer: JONN MEASUREMENT RESULTS: Intervals: Rate: 97 PA: 168 QRSD: 104 QT: 352 QTc: 447 [place]: P: 18 PA: 168 QRS: 134 T: 33 INTERPRETIVE STATEMENTS: Normal sinus rhythm Right axis deviation Incomplete right bundle branch block Cannot rule out Anterior infarct, age undetermined Abnormal ECG Compared to ECG 01/22/2018 13:56:59 No significant changes Electronically Signed On 08-26-19 20:53:02 CALL CENTER NURSE by Rios Rangel
[2019-08-26] MEDS ORDERED: CEFTRIAXONE/SWI 1gm 1 GM/10 ML SYR IVP SCH (21:00)
[2019-08-26] MEDS: ACETAMINOPHEN 500 MG TAB PO PRN (21:23)
[2019-08-26] MEDS ORDERED: GLUCAGON 1 MG/VIAL IM PRN ×2 (22:10→22:12)
[2019-08-26] MEDS ORDERED: D50W 25 GM/50 ML SYRINGE/VIAL IV PRN ×2 (22:10→22:12)
[2019-08-27] MEDS: CEFTRIAXONE/SWI 1gm 1 GM/10 ML SYR IVP SCH ×2 (05:22→17:34)
[2019-08-27] MEDS: PANTOPRAZOLE 40MG TABLET PO SCH (05:22)
[2019-08-27] MEDS: LEVOTHYROXINE SOD 0.1 MG TAB PO SCH (05:22)
[2019-08-27 05:55] LABS: Absolute Lymphocytes (CBC) 0.7 K/uL (0.7-4.9); Basophils % 0.3 % (0-1.3); Hematocrit 33.1 % (36.0-45.0); Lymphocytes % 4.7 % (15.3-44.8); MPV 9.9 fL (7.6-11.3); RBC Red Blood Cell Count 4.22 M/uL (3.86-4.86)
[2019-08-27] MEDS ORDERED: INFLUENZA VACCINE (for 3y+) 0.5 ML DOSE IMVAC ONE (06:00)
[2019-08-27 06:17] LABS: Potassium 4.3 mmol/L (3.5-5.1)
[2019-08-27] MEDS ORDERED: INSULIN -REGULAR HUMAN 50 UNIT/0.5 ML ML SQ SCH (07:30)
[2019-08-27] MEDS: INSULIN -REGULAR HUMAN 50 UNIT/0.5 ML ML SQ SCH ×6 (07:30→20:42)
[2019-08-27] MEDS: ALBUTEROL 2.5 MG/3 ML NEB SOL NEB PRN ×2 (07:40→13:35)
[2019-08-27] MEDS: IPRATROPIUM BROM 0.5MG/2.5ML NEB PRN ×2 (07:40→13:35)
[2019-08-27] MEDS ORDERED: CEFTRIAXONE/SWI 1gm 1 GM/10 ML SYR IVP SCH (09:00)
[2019-08-27] MEDS: NPH (HUMAN) 100 UNITS/ML INSULIN SQ SCH ×2 (09:35→20:41)
[2019-08-27] MEDS: lisinopriL 20 MG TAB PO SCH (09:36)
[2019-08-27] MEDS: AZITHROMYCIN IV 250 MG in NA CHLORIDE 0.9% 250 ML IVPB SCH (09:36)
[2019-08-27] MEDS: ENOXAPARIN 40 MG/0.4 ML SQ SCH (14:59)
[2019-08-27] MEDS: ACETAMINOPHEN 500 MG TAB PO PRN (19:19)
--- NOTE | 2019-08-27 21:56 | HP ---
Date of Admission: 08/26/2019 History Of Present Illness: A 43-year-old female with multiple medical problems including morbid obe sity and type 2 diabetes, who presented to the emergency room with the complaint of cough, increased shortness of breath over the past 24 hours before her admission. She felt febrile, but she did not h ave chills. Her workup showed that the patient has left lower lobe pneumonia and she was admitted fo r that. The patient also in the emergency room, her pulse oximetry on room was 86, as reported to me , so she was hypoxic that aided in the admission criteria. The patient had no chest pain. No nausea , no vomiting, and no other complaints. Review of Systems: Respiratory: As above. Cardiovascular: No complaints. Genitourinary: No complaints. Skeletomuscular: No complaint. Gastrointestinal: No complaint. Neurological: No complaint. Past Medical History: 1.Morbid obesity. 2.Type 2 diabetes. 3.Hypertension. 4.Hyperlipidemia. Social History: No smoking, alcohol, or drug abuse history. Family History: Noncontributing. Medications: Include albuterol 2 puffs q.i.d., regular insulin 30 units subcutaneous b.i.d. and NPH insulin 70 units subcutaneous b.i.d., Prevacid 30 mg p.o. daily, levothyroxine 100 mg p.o. daily, and lisinopril 20 mg p.o. daily. Allergies: THE PATIENT HAS ALLERGY TO AVOCADO. Physical Examination: Vital Signs: Blood pressure 160/70, pulse 74, temperature of 97.2, weight 438 pounds. Heart: Regular rate and rhythm. Chest: Mild bibasilar crackles. Abdomen: Soft, nontender. Bowel sounds are normoactive. Neurologic: Alert, oriented, nonfocal. Grossly intact. Extremities: No edema. No cyanosis. Peripheral pulses are felt. Laboratory Data: Chest x-ray showed left lower lobe infiltrate. Chest CT showed no evidence of pulm onary emboli. White cell count 15.5, dropped to 14.3, hemoglobin 10.5, hematocrit 33.6, and platelet s 293. D-dimer was 1432. BNP 1276. Troponin less than 0.02. Blood sugar fingersticks in the 300. The rest of chemistry is noted. Assessment And Plan: Left lower lobe pneumonia with leukocytosis and hypoxia as evident by the pulse oximetry. The patient is being admitted, put on IV ceftriaxone and IV Zithromax, put her on oxygen protocol. Continue her home medications and monitor her blood sugar fingersticks. The patient is al so being put on breathing treatments. Look orders for details. MFS/MODL Voice ID: [id number]
[2019-08-28 04:39] VITALS: O2SAT 96
[2019-08-28] MEDS: CEFTRIAXONE/SWI 1gm 1 GM/10 ML SYR IVP SCH (05:36)
[2019-08-28] MEDS: LEVOTHYROXINE SOD 0.1 MG TAB PO SCH (05:36)
[2019-08-28] MEDS: PANTOPRAZOLE 40MG TABLET PO SCH (05:36)
[2019-08-28 05:56] LABS: Absolute Lymphocytes (CBC) 1.5 K/uL (0.7-4.9); Basophils % 0.7 % (0-1.3); Hematocrit 31.7 % (36.0-45.0); Lymphocytes % 10.6 % (15.3-44.8); MPV 9.7 fL (7.6-11.3); RBC Red Blood Cell Count 4.08 M/uL (3.86-4.86)
[2019-08-28] MEDS: INSULIN -REGULAR HUMAN 50 UNIT/0.5 ML ML SQ SCH ×3 (07:30→11:30)
[2019-08-28] MEDS: NPH (HUMAN) 100 UNITS/ML INSULIN SQ SCH (08:59)
[2019-08-28] MEDS: ENOXAPARIN 40 MG/0.4 ML SQ SCH (09:00)
[2019-08-28] MEDS: lisinopriL 20 MG TAB PO SCH (09:01)
[2019-08-28] MEDS: AZITHROMYCIN IV 250 MG in NA CHLORIDE 0.9% 250 ML IVPB SCH (09:58)
[2019-08-28] MEDS: ACETAMINOPHEN 500 MG TAB PO PRN (10:53)
[2019-08-28 14:02] VITALS: BP 130/79; TEMP 97
== END 2019-08-28 12:04 | disposition home or self-care (01) | DRG 194 ==
LOC: ER 12:12 → ERHOLD 16:51 → 2ND 19:38
PROVIDERS: ADMIT Internal Medicine; ATTEND Internal Medicine
DX: J18.9 Pneumonia, unspecified organism (principal); Z68.45 Body mass index [BMI] 70 or greater, adult; E11.9 Type 2 diabetes mellitus without complications; I10 Essential (primary) hypertension; E03.9 Hypothyroidism, unspecified; E78.5 Hyperlipidemia, unspecified; R09.02 Hypoxemia; D72.829 Elevated white blood cell count, unspecified; E66.01 Morbid (severe) obesity due to excess calories
CPT/HCPCS: 36415; 71046; 71275; 80048; 80076; 81003; 81025; 82550; 82553; 82947; 83690; 83735; 83880; 84484; 85025; 85379; 85610; 85730; 87070; 87081; 87804; 90471; 93005; 94640; 94760; 96365; 96366; 96368; 96375; 99285; J0456; J0696; J1650; J1815; J2930; J7030; Q2035; Q9967

== ENCOUNTER 2019-09-09 11:48 | Emergency (ER) | payer SELFPAY ==
--- NOTE | 2019-09-09 14:09 | ER ---
Nurse's Notes [facility] Name: Marianna Garsia Age: 43 yrs Sex: Female : 1975 Arrival Date: 09/09/2019 Time: 11:52 Bed Waiting Private MD: Diagnosis: Presentation: 09/09 12:49 Presenting complaint: Patient states: Tooth abscess, went to dentist yesterday and was ca1 prescribed antibiotics and Tylenol #3. C/O severe pain and swelling on R cheek. Transition of care: patient was not received from another setting of care. Onset of symptoms was September 09, 2019. Risk Assessment: Do you want to hurt yourself or someone else? Patient reports no desire to harm self or others. Initial Sepsis Screen: Does the patient meet any 2 criteria? No. Patient's initial sepsis screen is negative. Does the patient have a suspected source of infection? No. Patient's initial sepsis screen is negative. Care prior to arrival: None. 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 - Coronavirus screen:: The patient has NOT traveled to [place], [place], or [place] in the past 14 days. The patient has NOT had contact with known/suspected case of Coronavirus?. - Social history:: Smoking status: Patient denies any tobacco usage or history of. - Ebola Screening: : Patient negative for fever greater than or equal to 101.5 degrees Fahrenheit, and additional compatible Ebola Virus Disease symptoms Patient denies exposure to infectious person Patient denies travel to an Ebola-affected area in the 21 days before illness onset No symptoms or risks identified at this time. Assessment: 12:55 Reassessment: Pt to visit her sister in room 230. Will be back soon. ca1 13:45 Reassessment: not in lobby. iw Vital Signs: 12:52 BP 161 / 97; Pulse 82; Resp 17 S; Temp 97.8(TE); Pulse Ox 97% on R/A; Weight 198.67 kg ca1 (R); Height 5 ft. 4 in. (162.56 cm) (R); 12:52 Body Mass Index 75.18 (198.67 kg, 162.56 cm) ca1 ED Course: 11:52 Patient arrived in ED. mr 12:51 Triage completed. ca1 12:52 Arm band placed on right wrist. ca1 13:45 Nasra Garsia, RN is Primary Nurse. iw Administered Medications: No medications were administered Outcome: 14:09 Patient left the ED. ca1 14:09 Eloped from waiting room, post triage evaluation and consult. [id number] Time discovered iw patient gone: September 09, 2019 at 14:09 14:09 Condition: unchanged Signatures: Lupis Rojas mr Nasra Garsia, RN RN iw Susana Patton RN RN ca1
[2019-09-09 14:33] VITALS: BP 161/97; TEMP 97.8; O2SAT 97
== END 2019-09-09 14:09 | disposition left against medical advice (07) ==
LOC: ER 11:48
DX: Z02.9 Encounter for administrative examinations, unspecified (principal)
CPT/HCPCS: 99281